=== PATIENT | male | born 1955 | race Caucasian/White ===

== ENCOUNTER 2018-02-12 07:26 | Inpatient (IN) | payer BC ==
--- NOTE | 2018-02-12 07:32 | ER Report ---
History and Physical Time Seen By MD: 07:32 HPI/ROS CHIEF COMPLAINT: right chest pain, cough HISTORY OF PRESENT ILLNESS: This is a 62 year old male. He has had a cough for bout 6 weeks now. Had been seeing his primary care provider at home, recent chest x-ray showed atelectasis. Here on vacation. Flew into [place], now with worsening pain. Right sided pain, sharp, intermittent. Worsens with deep breaths , cough. Radiates to right back and to right neck. Coughing up phlegm. Having fevers intermittently as well. No pain with eating or drinking. No problems with abdominal pain, normal bowels, normal urination. No swelling in legs. Has just finished a course of Doxycycline and Prednisone prescribed last week. Had a course of Amoxicillin prior to this during the last 6 weeks. REVIEW OF SYSTEMS: Constitutional: As above. Eyes: No vision changes. ENT: No sore throat. No congestion. Cardiovascular: No palpitations. Respiratory: As above. Gastrointestinal: No nausea or vomiting. Genitourinary: As above. Musculoskeletal: No extremity pain. Skin: No rashes. Neurological: No weakness. No headache. Allergies: Coded Allergies: codeine (Verified Allergy, Unknown, 02/12/18) Home Meds Reported Medications Benzonatate 100 Mg Cap (TESSALON PERLE 100 MG CAP) 100 Mg Capsule, 100 MG PO TID , #15 CAP 02/12/18 Cyclobenzaprine Hcl (CYCLOBENZAPRINE HCL) 10 Mg Tablet, 10 MG PO TID, #9 TAB 02/12/18 Cetirizine Hcl (ZYRTEC) 10 Mg Capsule, 10 MG PO QDAY, CAPSULE 02/12/18 Ranitidine Hcl (RANITIDINE HCL) 75 Mg Tablet, 75 MG PO BID 02/12/18 Aspirin (ASPIRIN) 81 Mg Tab.chew, 81 MG PO QDAY, TAB.CHEW 02/12/18 Omeprazole (OMEPRAZOLE) 20 Mg Tablet.dr, 20 MG PO BID, TAB 02/12/18 Metoprolol Succinate (METOPROLOL SUCCINATE) 25 Mg Tab.er.24h, 20 TAB PO 2-3XD, TAB 02/12/18 Montelukast Sodium (SINGULAIR) 10 Mg Tablet, 1 TAB PO QDAY, TAB 02/12/18 Past Medical/Surgical History Atrial fibrillation, history of tendon rupture on Levaquin (left achilles). Reviewed Nurses Notes: Yes Constitutional Vital Sign - Last 24 Hours 02/12/18 02/12/18 02/12/18 02/12/18 07:30 07:30 08:00 08:26 Temp 97.5 Pulse 102 92 Resp 18 28 B/P (MAP) 138/97 (111) 138/97 108/78 (88) Pulse Ox 90 90 O2 Delivery Room Air 02/12/18 02/12/18 02/12/18 02/12/18 08:30 08:56 09:00 10:00 Pulse 91 Resp 27 B/P (MAP) 130/94 (106) 127/91 (103) 127/90 (102) Pulse Ox 91 02/12/18 02/12/18 02/12/18 10:05 10:30 10:35 Pulse 92 89 Resp 36 16 B/P (MAP) 117/82 (94) Pulse Ox 89 94 Physical Exam General Appearance: The patient is alert. No acute distress. Eyes: Pupils are equal, round. No pallor, injection or icterus. ENT: Mucous membranes are moist. Normal oral mucosa. Posterior oropharynx is normal. Neck: Supple and non tender. No lymphadenopathy. Respiratory: Any deep breaths cause significant pain. Cough with greenish sputum. Lungs diminished in right base with coarse rales, the rest of the lungs are clear. Cardiovascular: Tachycardia, with a regular rhythm. No murmurs, gallops or rubs. No edema. Gastrointestinal: Abdomen is soft and non tender. Nondistended. Normal active bowel sounds. No costovertebral angle tenderness with percussion. Neurological: Alert and oriented x3. Skin: Warm and dry. Musculoskeletal: No pain in extremities or over spine,back area with palpation DIFFERENTIAL DIAGNOSIS: After history and physical exam, differential diagnosis was considered for chest pain including but not limited to myocardial ischemia, pericarditis pulmonary embolus, chest wall pain, pleural inflammation and pulmonary infectious causes. Medical Decision Making Data Points Result Diagram: 02/12/18 0730 02/12/18 0730 Laboratory Hematology Test 02/12/18 00:00 02/12/18 07:30 02/12/18 08:22 Red Blood Count 5.14 M/uL (4.00-5.60) Mean Corpuscular Volume 92.1 fL (80.0-96.0) Mean Corpuscular Hemoglobin 31.5 pg (26.0-33.0) Mean Corpuscular Hemoglobin Concent 34.2 g/dL (32.0-36.0) Red Cell Distribution Width 13.9 % (11.5-14.5) Mean Platelet Volume 9.2 fL (7.2-11.1) Neutrophils (%) (Auto) 81.0 % (39.4-72.5) Lymphocytes (%) (Auto) 7.3 % (17.6-49.6) Monocytes (%) (Auto) 8.9 % (4.1-12.4) Eosinophils (%) (Auto) 2.4 % (0.4-6.7) Basophils (%) (Auto) 0.4 % (0.3-1.4) Nucleated RBC Relative Count (auto) 0.7 /100WBC Neutrophils # (Auto) 13.8 K/uL (2.0-7.4) Lymphocytes # (Auto) 1.2 K/uL (1.3-3.6) Monocytes # (Auto) 1.5 K/uL (0.3-1.0) Eosinophils # (Auto) 0.4 K/uL (0.0-0.5) Basophils # (Auto) 0.1 K/uL (0.0-0.1) Nucleated RBC Absolute Count (auto) 0.12 K/uL D-Dimer Quantitative (PE/DVT) 1.26 ug/ml (0-0.50) Sodium Level 142 mmol/L (137-145) Potassium Level 3.8 mmol/L (3.5-5.0) Chloride Level 101 mmol/L (98-107) Carbon Dioxide Level 28 mmol/L (22-30) Blood Urea Nitrogen 17 mg/dl (9-21) Creatinine 1.50 mg/dl (0.66-1.25) Glomerular Filtration Rate Calc 47.6 Random Glucose 128 mg/dl (75-110) Calcium Level 9.4 mg/dl (8.4-10.2) Total Bilirubin 1.7 mg/dl (0.2-1.3) Aspartate Amino Transf (AST/SGOT) 39 U/L (0-35) Alanine Aminotransferase (ALT/SGPT) 47 U/L (0-56) Alkaline Phosphatase 62 U/L (0-126) Troponin I < 0.012 ng/ml C-Reactive Protein 37.6 mg/dl (<1.0) Total Protein 7.4 g/dl (6.3-8.2) Albumin 3.9 g/dl (3.5-5.0) Lactate 1.1 mmol/L (0.7-2.1) Chemistry Test 02/12/18 00:00 02/12/18 07:30 02/12/18 08:22 White Blood Count 17.1 k/uL (4.5-11.0) Red Blood Count 5.14 M/uL (4.00-5.60) Hemoglobin 16.2 g/dL (14.0-18.0) Hematocrit 47.3 % (42.0-52.0) Mean Corpuscular Volume 92.1 fL (80.0-96.0) Mean Corpuscular Hemoglobin 31.5 pg (26.0-33.0) Mean Corpuscular Hemoglobin Concent 34.2 g/dL (32.0-36.0) Red Cell Distribution Width 13.9 % (11.5-14.5) Platelet Count 210 K/uL (150-450) Mean Platelet Volume 9.2 fL (7.2-11.1) Neutrophils (%) (Auto) 81.0 % (39.4-72.5) Lymphocytes (%) (Auto) 7.3 % (17.6-49.6) Monocytes (%) (Auto) 8.9 % (4.1-12.4) Eosinophils (%) (Auto) 2.4 % (0.4-6.7) Basophils (%) (Auto) 0.4 % (0.3-1.4) Nucleated RBC Relative Count (auto) 0.7 /100WBC Neutrophils # (Auto) 13.8 K/uL (2.0-7.4) Lymphocytes # (Auto) 1.2 K/uL (1.3-3.6) Monocytes # (Auto) 1.5 K/uL (0.3-1.0) Eosinophils # (Auto) 0.4 K/uL (0.0-0.5) Basophils # (Auto) 0.1 K/uL (0.0-0.1) Nucleated RBC Absolute Count (auto) 0.12 K/uL D-Dimer Quantitative (PE/DVT) 1.26 ug/ml (0-0.50) Glomerular Filtration Rate Calc 47.6 Calcium Level 9.4 mg/dl (8.4-10.2) Total Bilirubin 1.7 mg/dl (0.2-1.3) Aspartate Amino Transf (AST/SGOT) 39 U/L (0-35) Alanine Aminotransferase (ALT/SGPT) 47 U/L (0-56) Alkaline Phosphatase 62 U/L (0-126) Troponin I < 0.012 ng/ml C-Reactive Protein 37.6 mg/dl (<1.0) Total Protein 7.4 g/dl (6.3-8.2) Albumin 3.9 g/dl (3.5-5.0) Lactate 1.1 mmol/L (0.7-2.1) Coagulation Test 02/12/18 07:30 D-Dimer Quantitative (PE/DVT) 1.26 ug/ml Urinalysis Test 02/12/18 00:00 Microbiology Microbiology Date/Time Source Procedure Growth Status 02/12/18 08:22 Blood Blood Culture - Preliminary NO GROWTH SO FAR, SET LATE. REINCUBATED Resulted 02/12/18 08:15 Blood Blood Culture - Preliminary NO GROWTH SO FAR, SET LATE. REINCUBATED Resulted EKG/Imaging EKG Interpretation 12 lead EKG: Rhythm: normal sinus rhythm, rate 100 [place]: normal QRS: normal ST segments: Nonspecific, no ST elevation or depression noted Imaging CHEST PA AND LAT Indication: Cough, right chest pain Comparison: None Findings: Lungs: There is a smooth bordered castro shaped opacity right upper lobe, and right midlung zone. The right hemidiaphragm is elevated. Right-sided pleural fluid appears at the apex. The left lung is well-expanded and clear. Mediastinum/pulmonary vasculature: Heart size and pulmonary vasculature are normal. Bones/soft tissues: Normal. IMPRESSION: 1. Right upper lobe smooth bordered opacity with possible pleural fluid. Differential diagnosis includes mass, or consolidation or loculated fluid in the major fissure. Recommend CT chest with IV contrast for further evaluation. 2. Clear left lung. Report Dictated By: Wang Porter at 02/12/2018 8:54 AM CTA CHEST WW/O CNTR (PULM ANG) HISTORY: chest pain, abnormal chest x-ray ADDITIONAL HISTORY: None. TECHNIQUE: CTA chest with intravenous contrast attention to pulmonary arteries. Sagittal, coronal and slab 3D MIP coronal reconstructed images were also created for further evaluation and interpretation. One of the following dose optimization techniques was utilized in the performance of this exam: Automated exposure control; adjustment of the mA and/ or kV according to the patient's size; or use of an iterative reconstruction technique. Specific details can be referenced in the facility's radiology CT exam operational policy. CONTRAST: 75 mL Isovue-370 IV COMPARISON: Chest x-ray 2017 FINDINGS: Heart/vessels: Pulmonary arterial tree well opacified without evidence of pulmonary embolism. Mediastinum: Negative. Lymph nodes: Several borderline to mildly enlarged right hilar lymph nodes, 1.0 x 1.3 cm (4/110) and 1.2 x 1.1 cm (4/119). Mildly enlarged subcarinal lymph node 1.3 x 2.8 cm (4/132). Lungs/pleura: Moderate asymmetric elevation right hemidiaphragm. On the left, elongate calcified pleural thickening anterior upper lobe with subjacent subsegmental chronic atelectasis or scar. Several calcified left lower lobe pulmonary nodules consistent with benign granulomas. Mild basilar subsegmental atelectasis. On the right, subtotal middle lobe collapse without gross central airway obstruction. Atelectasis and/or infiltrate basilar segments lower lobe. Mild compressive atelectasis posterior upper lobe. Moderate volume pleural fluid with multifocal loculation. Several calcified pulmonary nodules consistent with benign granulomas. Visualized upper abdomen: Surgical clips along the falciform ligament, otherwise grossly unremarkable. Bones/soft tissues: Mild disc degenerative changes thoracic spine. IMPRESSION: 1. Technically adequate exam without evidence of pulmonary embolism. 2. Moderate volume nonspecific right pleural fluid but with multifocal loculation. 3. Right basilar atelectasis and/or nonspecific pulmonary infiltrate. 4. Mild mediastinal and right hilar adenopathy. Report Dictated By: Troy Barrera MD at 02/12/2018 10:09 AM ED Course/Re-evaluation Clinical Indication for ER IV: Hydration, IV Access ED Course Initial evaluation as noted above. IV started, cultures and labs obtained. Chest x-ray shows changes that could represent pneumonia, effusion with possible loculation, and cannot rule out mass. White count elevated with shift. D-dimer elevated. EKG and Troponin are negative. Lactate 1.1 and elevated CRP. Creatinine is a little elevated, and no history of kidney problems in the past. CTA done and shows consolidation and loculated fluid. Discussed the case with Dr. Rai, and recommended admission to the hospital. After our conversation, gave Primaxin 500mg IV after obtaining urine and sputum cultures. Primaxin chosen because of the recent antibiotic use. Dr. Rai will obtain surgical consultation. Discussed all of this with the patient and his and answered questions for them. Decision to Disposition Date: Feb 12, 2018 Decision to Disposition Time: 11:08 Depart Departure Latest Vital Signs Vital Signs Date Time Temp Pulse Resp B/P (MAP) Pulse Ox O2 Delivery O2 Flow Rate FiO2 02/12/18 10:35 89 16 94 02/12/18 10:30 117/82 (94) 02/12/18 07:30 97.5 Room Air Impression: Primary Impression: Community acquired bacterial pneumonia Condition: Improved Disposition: Admitted from ER DAVIS STERN MD Feb 12, 2018 07:32
[2018-02-12] MEDS ORDERED: ONDANSETRON 4 MG/2 ML VIAL IVP ONE (07:45)
[2018-02-12] MEDS ORDERED: HYDROmorphone* 1 MG/ML 1 MG/ML ML IVP ONE ×2 (07:45→10:00)
[2018-02-12] MEDS ORDERED: NS(*) 0.9% 1000 ML BAG 1,000 ML IV ONE (07:45)
--- NOTE | 2018-02-12 07:50 | EKG ---
FACILITY: [facility] [place] PATIENT NAME: JUANPABLO CARRASCO : [id number] MR: [id number] V: [id number] EXAM DATE: ORDERING PHYSICIAN: DAVIS STERN TECHNOLOGIST: Test Reason : Blood Pressure : / mmHG Vent. Rate : 100 BPM Atrial Rate : 100 BPM P-R Int : 122 ms QRS Dur : 080 ms QT Int : 330 ms P-R-T Axes : 051 020 009 degrees QTc Int : 425 ms Normal sinus rhythm Possible Left atrial enlargement Borderline ECG No previous ECGs available Confirmed by RIMA COELHO ([id number]) on 02/12/2018 12:27:24 PM Referred By: Confirmed By:RIMA COELHO
[2018-02-12 07:57] LABS: PLATELET COUNT, AUTOMATED 210 K/uL (150-450)
[2018-02-12] MEDS ORDERED: MONT10TA PO (08:23)
[2018-02-12] MEDS ORDERED: METO25TA23 PO (08:23)
--- NOTE | 2018-02-12 08:59 | RADIOLOGY IMAGING REPORT ---
[facility] PATIENT NAME: Wilian Matthew : 1955 MR: [id number] V: [id number] EXAM DATE: ORDERING PHYSICIAN: DAVIS STERN TECHNOLOGIST: Location: [facility] Patient: Wilian Matthew : 1955 Visit/Account:[id number] Date of Sevice: 02/12/2018 CHEST PA AND LAT Indication: Cough, right chest pain Comparison: None Findings: Lungs: There is a smooth bordered castro shaped opacity right upper lobe, and right midlung zone. The right hemidiaphragm is elevated. Right-sided pleural fluid appears at the apex. The left lung is we ll-expanded and clear. Mediastinum/pulmonary vasculature: Heart size and pulmonary vasculature are normal. Bones/soft tissues: Normal. IMPRESSION: 1. Right upper lobe smooth bordered opacity with possible pleural fluid. Differential diagnosis inc ludes mass, or consolidation or loculated fluid in the major fissure. Recommend CT chest with IV con trast for further evaluation. 2. Clear left lung. Report Dictated By: Wang Porter at 02/12/2018 8:54 AM Report E-Signed By: Wang Porter at 02/12/2018 8:56 AM YULISSAN:MAGALI
[2018-02-12] MEDS ORDERED: CETI10CA8 PO (09:11)
[2018-02-12] MEDS ORDERED: CYCL10TA29 PO (09:11)
[2018-02-12] MEDS ORDERED: ASPI81TA94 PO (09:11)
[2018-02-12] MEDS ORDERED: BENZ100C4 PO (09:11)
[2018-02-12] MEDS ORDERED: RANI75TA5 PO (09:11)
[2018-02-12] MEDS ORDERED: OMEP-137 PO (09:11)
[2018-02-12] MEDS ORDERED: IOPAMIDOL 76% 100 ML INFUS BTL 100 ML ONE (09:30)
[2018-02-12] MEDS ORDERED: NS 0.9% 25 ML BAG 50 ML ONE (09:30)
--- NOTE | 2018-02-12 10:30 | RADIOLOGY IMAGING REPORT ---
FACILITY: [facility] [place] PATIENT NAME: Wilian Matthew : 1955 MR: [id number] V: [id number] EXAM DATE: ORDERING PHYSICIAN: DAVIS STERN TECHNOLOGIST: Location: [facility] [place] Patient: Wilian Matthew : 1955 Visit/Account:[id number] Date of Sevice: 02/12/2018 CTA CHEST WW/O CNTR (PULM ANG) HISTORY: chest pain, abnormal chest x-ray ADDITIONAL HISTORY: None. TECHNIQUE: CTA chest with intravenous contrast attention to pulmonary arteries. Sagittal, coronal a nd slab 3D MIP coronal reconstructed images were also created for further evaluation and interpretati on. One of the following dose optimization techniques was utilized in the performance of this exam: Autom ated exposure control; adjustment of the mA and/or kV according to the patient's size; or use of an i terative reconstruction technique. Specific details can be referenced in the facility's radiology C T exam operational policy. CONTRAST: 75 mL Isovue-370 IV COMPARISON: Chest x-ray 2017 FINDINGS: Heart/vessels: Pulmonary arterial tree well opacified without evidence of pulmonary embolism. Mediastinum: Negative. Lymph nodes: Several borderline to mildly enlarged right hilar lymph nodes, 1.0 x 1.3 cm (4/110) and 1.2 x 1.1 cm (4/119). Mildly enlarged subcarinal lymph node 1.3 x 2.8 cm (4/132). Lungs/pleura: Moderate asymmetric elevation right hemidiaphragm. On the left, elongate calcified ple ural thickening anterior upper lobe with subjacent subsegmental chronic atelectasis or scar. Several calcified left lower lobe pulmonary nodules consistent with benign granulomas. Mild basilar subsegmen jus atelectasis. On the right, subtotal middle lobe collapse without gross central airway obstruction . Atelectasis and/or infiltrate basilar segments lower lobe. Mild compressive atelectasis posterior u pper lobe. Moderate volume pleural fluid with multifocal loculation. Several calcified pulmonary nodu les consistent with benign granulomas. Visualized upper abdomen: Surgical clips along the falciform ligament, otherwise grossly unremarkabl e. Bones/soft tissues: Mild disc degenerative changes thoracic spine. IMPRESSION: 1. Technically adequate exam without evidence of pulmonary embolism. 2. Moderate volume nonspecific right pleural fluid but with multifocal loculation. 3. Right basilar atelectasis and/or nonspecific pulmonary infiltrate. 4. Mild mediastinal and right hilar adenopathy. Report Dictated By: Troy Barrera MD at 02/12/2018 10:09 AM Report E-Signed By: Troy Barrera MD at 02/12/2018 10:27 AM WSN:[id number]
[2018-02-12] MEDS ORDERED: IMIPENEM/CILASTA(*) 500MG VIAL 500 MG in NS(*) 0.9% 100 ML BAG 100 ML IVPB ONE (11:25)
[2018-02-12] MEDS ORDERED: PIPERACILLIN/TAZO* 4.5 GM VIAL 4.5 GM in NS(*) 0.9% 100 ML ADDVANT BAG 100 ML IVPB ONE (11:25)
[2018-02-12] MEDS ORDERED: INFLUENZA VIRUS VAC 0.5 ML SYR IM ONLY ONE (12:30)
[2018-02-12] MEDS ORDERED: ALBUTEROL 2.5 MG/3 ML NEB NEB PRN (12:30)
[2018-02-12] MEDS ORDERED: ACETAMINOPHEN 500 MG TAB PO PRN (12:30)
[2018-02-12 12:34] VITALS: BP 149/99
--- NOTE | 2018-02-12 13:02 | History & Physical ---
History of Present Illness Chief Complaint Cough and chest pain History of Present Illness This patient presented to the emergency room complaining of cough and chest pain. He reports right sided chest pain that occurs with coughing. He was diagnosed with a sinus infection about 10 days ago. He was placed on treatment with amoxicillin and doxycycline, but hasn't improved. He developed the cough 3 days ago and was seen in another emergency department and released. Today his chest pain became so severe that he was unable to continue on in the care. History Problems: (1) Essential hypertension Home Meds Reported Medications Benzonatate 100 Mg Cap (TESSALON PERLE 100 MG CAP) 100 Mg Capsule, 100 MG PO TID , #15 CAP 02/12/18 Cyclobenzaprine Hcl (CYCLOBENZAPRINE HCL) 10 Mg Tablet, 10 MG PO TID, #9 TAB 02/12/18 Cetirizine Hcl (ZYRTEC) 10 Mg Capsule, 10 MG PO QDAY, CAPSULE 02/12/18 Ranitidine Hcl (RANITIDINE HCL) 75 Mg Tablet, 75 MG PO BID 02/12/18 Aspirin (ASPIRIN) 81 Mg Tab.chew, 81 MG PO QDAY, TAB.CHEW 02/12/18 Omeprazole (OMEPRAZOLE) 20 Mg Tablet.dr, 20 MG PO BID, TAB 02/12/18 Metoprolol Succinate (METOPROLOL SUCCINATE) 25 Mg Tab.er.24h, 20 TAB PO 2-3XD, TAB 02/12/18 Montelukast Sodium (SINGULAIR) 10 Mg Tablet, 1 TAB PO QDAY, TAB 02/12/18 Allergies: Coded Allergies: codeine (Verified Allergy, Unknown, 02/12/18) Review of Systems All Systems Reviewed/Normal: Yes Cardiovascular: Chest Pain Respiratory: Cough Exam Vital Signs Vital Signs Date Time Temp Pulse Resp B/P (MAP) Pulse Ox O2 Delivery O2 Flow Rate FiO2 02/12/18 12:37 95 Nasal Cannula 3.0 02/12/18 12:34 97.7 84 25 149/99 (116) Neuro: No Gross deficits Eyes: PERRLA Cardiovascular: Regular Rate and Rhythm Respiratory: Other (Diminshed breath sounds at right base.) GI: Abd Soft and Non-Tender Extremities: No Edema Integumentary: No Cyanosis Medical Decision Making Data Points Result Diagram: 02/12/18 0730 02/12/18 0730 Item Value Date Time Lactate 1.1 mmol/L 02/12/18 0822 C-Reactive Protein 37.6 mg/dl H 02/12/18 0730 EKG / Imaging Imaging Chest x-ray and chest CT reviewed. Assessment and Plan Problems: (1) Community acquired bacterial pneumonia Status: Acute Assessment & Plan: He did present with cough and right sided chest pain. His CT scan has revealed an infiltrate and loculated effusion on the right. His WBC and CRP are both elevated. He was on amoxicillin and doxycycline prior to admission. Therefore, we have placed him on empiric treatment with Primaxin. Cultures are pending. (2) Pleural effusion on right Assessment & Plan: We will discuss options with surgery. (3) Essential hypertension Assessment & Plan: He is on chronic treatment with metoprolol. Venous Thromboembolism Antithrombotics Is Pt On Any Antithrombotics?: No Exam Sepsis Risk: No Definite Risk RIMA COELHO DO Feb 12, 2018 13:02
[2018-02-12] MEDS: HYDROmorphone HCL 2 MG/ML SDV IVP PRN ×2 (13:28→19:13)
[2018-02-12] MEDS: NS(*) 0.9% 1000 ML BAG 1,000 ML IV PRN (13:32)
[2018-02-12] MEDS: GUAIFENESIN/DEXTROMETHORPHAN 5 ML PO PRN (13:37)
[2018-02-12] MEDS: PROMETHAZINE 25 MG/ML 1 ML AMP IVP PRN (14:37)
[2018-02-12 15:39] VITALS: BP 140/98
[2018-02-12] MEDS ORDERED: FENO43CA PO (15:50)
[2018-02-12] MEDS ORDERED: MULT-1335 PO (16:37)
[2018-02-12] MEDS ORDERED: ASCO-182 PO (16:37)
[2018-02-12] MEDS ORDERED: RANI-366 PO (16:53)
[2018-02-12] MEDS ORDERED: FENO145T36 PO (16:53)
[2018-02-12] MEDS ORDERED: METO50TA19 PO (16:53)
[2018-02-12] MEDS ORDERED: ONDANSETRON 4 MG/2 ML VIAL ONE (17:38)
[2018-02-12] MEDS ORDERED: ALTEPLASE RECOMB 100 MG/100 ML VIAL IV SCH (17:40)
[2018-02-12] MEDS: IMIPENEM/CILASTA(*) 500MG VIAL 500 MG in NS(*) 0.9% 100 ML BAG 100 ML IVPB SCH ×3 (17:43→23:16)
--- NOTE | 2018-02-12 18:16 | Procedure Note ---
Chest Tube Procedure Note Consent Signed: Yes Chest Tube Location: Right Lung Complications: None Anesthesia Used: 1% Lidocaine, Other (2% Lidocaine) Chest Tube Size Fr.: 24 Chest Tube Suction: Pleura-Vac Chest Tube Secured: 0 Silk Suture (x2) Post Procedure Xray Ordered: Yes Comment serous drainage SAMANTA MCCULLOUGH MD Feb 12, 2018 18:16
--- NOTE | 2018-02-12 18:26 | General Surgery Consultation ---
History of Present Illness Requesting Physician Dr. Rai Reason for Consult parapneumonic effusion vs. empyema Chief Complaint right sided chest pain, cough History of Present Illness 62 year old male from [place] who was traveling with his presented to [facility] with pneumonia. CT of his chest noted loculated pleural effusion located in the posterior and superior aspect of the thorax. He was complaining of right sided pleuritic pain. The pain was exacerbated by deep breathing. The pain did not radiate. About three weeks ago he aspirated a [employer] and developed issues with a pulmonary infection. He was started on doxy and augmentin. He decided to come on vacation even though he wasn't feeling well. He is on a baby asa and metoprolol. No prior h/o pneumonia. History Home Meds Reported Medications Ranitidine Hcl (ZANTAC) 150 Mg Tablet, 300 MG PO QHS, TAB 02/12/18 Fenofibrate Nanocrystallized (FENOFIBRATE) 145 Mg Tablet, 145 MG PO QDAY 02/12/18 Metoprolol Succinate (METOPROLOL SUCCINATE) 50 Mg Tab.er.24h, 25 MG PO BID 02/12/18 Multivitamin With Minerals (MULTIPLE VITAMIN) 1 Each Tablet, 1 EACH PO, TAB 02/12/18 Ascorbic Acid (VITAMIN C) 500 Mg Tablet, 500 MG PO, TAB 02/12/18 Benzonatate 100 Mg Cap (TESSALON PERLE 100 MG CAP) 100 Mg Capsule, 100 MG PO TID , #15 CAP 02/12/18 Cyclobenzaprine Hcl (CYCLOBENZAPRINE HCL) 10 Mg Tablet, 10 MG PO TID, #9 TAB 02/12/18 Cetirizine Hcl (ZYRTEC) 10 Mg Capsule, 10 MG PO QDAY, CAPSULE 02/12/18 Aspirin (ASPIRIN) 81 Mg Tab.chew, 81 MG PO QDAY, TAB.CHEW 02/12/18 Omeprazole (OMEPRAZOLE) 20 Mg Tablet.dr, 20 MG PO BID, TAB 02/12/18 Montelukast Sodium (SINGULAIR) 10 Mg Tablet, 1 TAB PO QDAY, TAB 02/12/18 Discontinued Reported Medications Fenofibrate,Micronized (FENOFIBRATE) 43 Mg Capsule, 43 MG PO QDAY, CAPSULE 02/12/18 Ranitidine Hcl (RANITIDINE HCL) 75 Mg Tablet, 75 MG PO BID 02/12/18 Metoprolol Succinate (METOPROLOL SUCCINATE) 25 Mg Tab.er.24h, 20 TAB PO 2-3XD, TAB 02/12/18 Allergies: Coded Allergies: codeine (Verified Allergy, Unknown, 02/12/18) Exam Vital Signs Vital Signs Date Time Temp Pulse Resp B/P (MAP) Pulse Ox O2 Delivery O2 Flow Rate FiO2 02/12/18 15:57 103 02/12/18 15:39 98.4 20 140/98 (112) 91 Nasal Cannula 4.0 General Appearance: Alert, Awake, No Acute Distress Eyes: PERRLA ENT: Moist Mucous Membranes Cardiovascular: Regular Rate and Rhythm Respiratory: No Respiratory Distress, Other (decreased bs on the right) GI: Abd Soft and Non-Tender Extremities: Soft and Non Tender Medical Decision Making Data Points Result Diagram: 02/12/18 0730 02/12/18 0730 EKG / Imaging Monitor Interpretation: Normal Sinus Rhythm Pre-Admit Course Medical Record Review: Yes Assessment and Plan Problems: (1) Pleural effusion *Optional Permanent Comment*: placed a 24fr chest tube will proceed with TPA x48 hours(10mg TID instill for 1hr with patient flat then drain) then repeat chest CT May need VATS if fails to resolve Continue abx per Dr. Rai for pneumonia Last Edited By: Samanta Cabrera MD on Feb 12, 2018 18:26 Time Spent: > 30 min Venous Thromboembolism Antithrombotics Is Pt On Any Antithrombotics?: No SAMANTA CABRERA MD Feb 12, 2018 18:26
[2018-02-12] MEDS ORDERED: fentaNYL CITR 100 MCG/2 ML AMP IVP ONE (18:30)
[2018-02-12] MEDS ORDERED: MIDAZOLAM 2 MG/2 ML VIAL IVP ONE (18:30)
[2018-02-12] MEDS: SODIUM CHLORIDE 0.9% IV SCH (18:45)
[2018-02-12] MEDS: ALTEPLASE IV SCH (18:45)
--- NOTE | 2018-02-12 19:23 | RADIOLOGY IMAGING REPORT ---
FACILITY: [facility] PATIENT NAME: Wilian Matthew : 1955 MR: [id number] V: [id number] EXAM DATE: ORDERING PHYSICIAN: RIMA COELHO TECHNOLOGIST: Location: [facility] [place] Patient: Wilian Matthew : 1955 Visit/Account:[id number] Date of Sevice: 02/12/2018 Examination: CHEST SINGLE AP Comparison: Earlier the same day. History: Chest tube insertion. Findings: A right chest tube is now present and extends along the right lower lung. Probable decrease d size of the likely loculated pleural effusion. No pneumothorax. Increased atelectasis. Cardiac and hilar contour is enlarged but unchanged. Right hemidiaphragm eleva tion as before. No acute osseous abnormality. IMPRESSION: 1. Right chest tube placement likely with decreased pleural fluid. 2. No pneumothorax. 3. Increased atelectasis. Report Dictated By: Casey Lindo MD at 02/12/2018 7:18 PM Report E-Signed By: Casey Lindo MD at 02/12/2018 7:20 PM WSN:[id number]
[2018-02-12 19:24] VITALS: BP 129/85
[2018-02-12 22:17] VITALS: BP 127/97
[2018-02-13] MEDS: ONDANSETRON 4 MG/2 ML VIAL IVP PRN ×5 (00:11→19:48)
[2018-02-13] MEDS: HYDROmorphone HCL 2 MG/ML SDV IVP PRN ×6 (00:11→22:15)
[2018-02-13] MEDS: NS(*) 0.9% 1000 ML BAG 1,000 ML IV PRN ×2 (01:21→13:47)
[2018-02-13] MEDS: ALTEPLASE IV SCH ×3 (02:36→18:03)
[2018-02-13] MEDS: SODIUM CHLORIDE 0.9% IV SCH ×3 (02:36→18:03)
[2018-02-13] MEDS: PROMETHAZINE 25 MG/ML 1 ML AMP IVP PRN ×2 (02:51→21:17)
[2018-02-13 03:53] VITALS: BP 141/108
--- NOTE | 2018-02-13 04:42 | RADIOLOGY IMAGING REPORT ---
FACILITY: [facility] PATIENT NAME: Wilian Matthew : 1955 MR: [id number] V: [id number] EXAM DATE: ORDERING PHYSICIAN: RIMA COELHO TECHNOLOGIST: Location: [facility] Patient: Wilian Matthew : 1955 Visit/Account:[id number] Date of Sevice: 02/13/2018 CHEST SINGLE AP 02/13/2018 03:55 hours. HISTORY: Effusion. Shortness of breath. Chest pain. COMPARISON: 02/12/2018. TECHNIQUE: Portable AP view of the chest. FINDINGS: Tubes/lines/hardware: There are external chest leads. There is a right chest tube. Pulmonary: The right pleural effusion has decreased in size. There is now gas in the right apical ple ural space/pneumothorax. There has been improvement in aeration of the right lung. There is mild left basilar atelectasis, stable to improved. There is mild elevation the right hemidiaphragm, unchanged. Cardiomediastinal: Cardiac and mediastinal silhouettes are within normal limits. Bones/soft tissues: No acute osseous abnormality. The visible abdomen is normal. There is subcutaneou s emphysema in the right lateral chest wall that has mildly increased. IMPRESSION: 1. Decrease in size of the right pleural effusion and improvement in aeration of the right lung. 2. Left basilar atelectasis is stable to mildly improved. 3. There is now gas in the pleural space at the right apex/small right apical pneumothorax. Right abdullahi st tube is present. These findings were discussed by phone with [place] TY on 02/13/2018 4:38 AM. Report Dictated By: Mandi Schultz at 02/13/2018 4:28 AM Report E-Signed By: Mandi Schultz at 02/13/2018 4:38 AM WSN:[id number]
[2018-02-13] MEDS: IMIPENEM/CILASTA(*) 500MG VIAL 500 MG in NS(*) 0.9% 100 ML BAG 100 ML IVPB SCH ×5 (05:15→20:17)
[2018-02-13 05:53] LABS: PLATELET COUNT, AUTOMATED 163 K/uL (150-450)
[2018-02-13 06:54] VITALS: BP 147/111
--- NOTE | 2018-02-13 08:46 | General Surgery Progress Note ---
Subjective Progress Notes Subjective vomiting increased O2 Physical Exam Vital Signs Date Time Temp Pulse Resp B/P (MAP) Pulse Ox O2 Delivery O2 Flow Rate FiO2 02/13/18 06:54 98.5 101 13 147/111 (123) 94 Oxy Mask 8.0 Intake and Output 02/14/18 07:00 Output Total 800 ml Balance -800 ml Output Urine Total 300 ml Emesis 500 ml # Emeses 2 General Appearance: Alert, Awake, No Acute Distress ENT: Moist Mucous Membranes Cardiovascular: Regular Rate and Rhythm Respiratory: No Respiratory Distress GI: Other (distended, non-tender) Extremities: Soft and Non Tender Result Diagram: 02/13/1851902/13/18519 Monitor Interpretation: Normal Sinus Rhythm Assessment and Plan Problems: (1) Pleural effusion *Optional Permanent Comment*: Last Edited By: Samanta Cabrera MD on Feb 13, 2018 08:42 Status: Acute Assessment & Plan: cxray today shows improved air spaces and reduction of effusions 825cc serosanguinous fluid out from CT yesterday continue on suction, small apical pneumothorax continue TPA protocol repeat chest CT tomorrow continue abx for pneumonia (2) Ileus Status: Acute Assessment & Plan: KUB ordered will place NGT if large gastric bubble. make NPO, continue IVFs ambulate monitor and replete electrolytes will order CT abd/pelvis with chest if fails to resolve by tomorrow to further evaluate Exam Sepsis Risk: Sepsis Risk SAMANTA CABRERA MD Feb 13, 2018 08:46
[2018-02-13] MEDS: DOCUSATE SODIUM 100 MG CAP PO SCH (09:00)
[2018-02-13] MEDS: POLYETHYLENE GLYCOL 17 GM PKT PO SCH (09:00)
--- NOTE | 2018-02-13 09:22 | Hospitalist Progress Note ---
Subjective Progress Notes Subjective He reports pain with chest tube. He has also had abdominal distension and nausea /vomiting. Physical Exam Vital Signs Date Time Temp Pulse Resp B/P (MAP) Pulse Ox O2 Delivery O2 Flow Rate FiO2 02/13/18 07:25 94 Oxy Mask 8.0 02/13/18 06:54 98.5 101 13 147/111 (123) Intake and Output 02/14/18 07:00 Intake Total 240 ml Output Total 800 ml Balance -560 ml Intake Oral 240 ml Output Urine Total 300 ml Emesis 500 ml # Emeses 2 General Appearance: Alert, Awake Cardiovascular: Regular Rate and Rhythm Respiratory: Other (decreased breath sounds at right base) Chest: Other (right chest tube in place with dressing intact) GI: Other (distended/somewhat taut/rare BS) Extremities: Warm, Perfused Result Diagram: 02/13/1851902/13/18519 Assessment and Plan Problems: (1) Community acquired bacterial pneumonia Status: Acute Assessment & Plan: This may have been a possible aspiration episode as well. He did present with cough and right sided chest pain. His CT scan has revealed an infiltrate and loculated effusion on the right. His WBC and CRP were both elevated. He was on amoxicillin and doxycycline prior to admission. Therefore , we have placed him on empiric treatment with IV Primaxin. Chest tube has been placed. Cultures are pending. (2) Pleural effusion on right Assessment & Plan: Loculated effusion secondary to pneumonia (possibly aspiration). Surgery has placed chest tube. Cultures pending. (3) Essential hypertension Assessment & Plan: He is on chronic treatment with metoprolol. Monitor. (4) Ileus Status: Acute Assessment & Plan: Surgery helping manage. NG will be placed. Keep NPO. Continue IV fluids. Watch closely. Exam Sepsis Risk: Sepsis Risk MAYKEL HOPKINS MD Feb 13, 2018 09:22
[2018-02-13 10:30] VITALS: BP 140/97
--- NOTE | 2018-02-13 11:33 | RADIOLOGY IMAGING REPORT ---
FACILITY: [facility] PATIENT NAME: Wilian Matthew : 1955 MR: [id number] V: [id number] EXAM DATE: ORDERING PHYSICIAN: SAMANTA MCCULLOUGH TECHNOLOGIST: Location: [facility] Patient: Wilian Matthew : 1955 Visit/Account:[id number] Date of Sevice: 02/13/2018 KUB SINGLE VIEW ABDOMEN Indication: Abdominal pain Comparison: None available Findings: Bowel gas seen throughout the abdomen in a nonobstructive pattern. There are no pathologic calcifications identified. Moderate amount of stool seen within the colon prominent within the a sending colon. Surgical clips within right upper quadrant related to prior cholecystectomy. Residual contrast seen within the urin alyssa bladder likely related to recent CT angiogram of the chest. IMPRESSION: 1. No evidence of bowel obstruction. 2. Moderate amount of stool within the region of the ascending colon. Report Dictated By: Wei Cloud MD at 02/13/2018 11:25 AM Report E-Signed By: Wei Cloud MD at 02/13/2018 11:29 AM WSN:[email or web address]
[2018-02-13 15:08] VITALS: BP 139/98
--- NOTE | 2018-02-13 15:11 | RADIOLOGY IMAGING REPORT ---
FACILITY: [facility] PATIENT NAME: Wilian Matthew : 1955 MR: [id number] V: [id number] EXAM DATE: ORDERING PHYSICIAN: SAMANTA MCCULLOUGH TECHNOLOGIST: Location: [facility] [place] Patient: Wilian Matthew : 1955 Visit/Account:[id number] Date of Sevice: 02/13/2018 CHEST SINGLE AP Indication: Right chest pain with chest tube. Comparison: Single view chest earlier on 02/13/2018 Findings: Heart size mildly enlarged with no overt failure. Interval placement of enteric feeding tube with ti p within the mid stomach. Interval placement of right-sided chest tube with the distal tip of the mi d right lung field. Significant decreased size of the right apical pneumothorax now measuring approx imately 1.2 cm Persistent patchy bibasilar atelectasis or early infiltrates. Subcutaneous emphysema right lower lat eral right lower chest wall again noted. IMPRESSION: 1. Interval placement of right-sided chest tube with slight decreased size of the right apical pneumo thorax as above. 2. Mild bibasilar atelectasis or early infiltrates. Report Dictated By: Wei Cloud MD at 02/13/2018 3:04 PM Report E-Signed By: Wei Cloud MD at 02/13/2018 3:07 PM WSN:[email or web address]
--- NOTE | 2018-02-13 15:25 | Medical Nutrition Therapy ---
Nutrition Anthropometrics Weight (Pounds): 180 Weight (Calculated Kilograms): 81.647 Jose Nutrition Score: Adequate Jose Nutrition Risk Score: 20 Dietary Referral Nutrition Risk Factors: Nutrition Risk Comment: Nutritional Diagnosis Nutritional Risk Acuity 1: Ileus Past Medical History: Afib, HTN Nutritional Acuity: 1-High Nutrition Diagnosis: Inadequate Food Intake Nutrition Etiology: Physiological Causes Nutrition Problem/Etiology/Sym: AEB diet order of NPO Energy Requirement: 2430 (30kcal/kg) Protein Requirement: 81 (1gm/kg) Fluid Requirement: 2430 (30ml/kg) Diet Type: NPO (Nothing by Mouth) Nutrition Intervention: Incr diet as tolerated Nutrition Monitoring & Eval Nutrition Goals: Eat 75-100% Meal RD Patient Assessment Time: [address] Assessment Type: RD Assessment Patient Nutrition Acuity: 1-High Follow Up Date: Feb 16, 2018 Nutritional Comment: 02/13 Pt. admitted with acute bacterial pneumonia with pleural effusion on rt. side. Pt was on regular diet and ate 100% but then developed an ileus and diet changed to NPO. Experiencing nausea. . Creatinine 1.5, glucose 128, alb 3.9. No edema. Abdomen round and hypoactive bowel. Will monitor. SHMUEL KEY Feb 13, 2018 15:25
[2018-02-13] MEDS: PHENOL SPRAY 120 ML BTL MT PRN ×2 (16:58→20:09)
[2018-02-13 19:50] VITALS: BP 138/97
[2018-02-13] MEDS ORDERED: BENZOCAINE/MENTHOL 1 EACH LOZG PO PRN (22:20)
[2018-02-13 22:37] VITALS: BP 133/97
[2018-02-14] VITALS (39 sets, daily range): BP systolic 79–219; BP diastolic 48–109
[2018-02-14] MEDS: IMIPENEM/CILASTA(*) 500MG VIAL 500 MG in NS(*) 0.9% 100 ML BAG 100 ML IVPB SCH ×4 (01:32→20:13)
[2018-02-14] MEDS: NS(*) 0.9% 1000 ML BAG 1,000 ML IV PRN (01:32)
[2018-02-14] MEDS: HYDROmorphone HCL 2 MG/ML SDV IVP PRN (01:32)
[2018-02-14] MEDS: PROMETHAZINE 25 MG/ML 1 ML AMP IVP PRN (02:17)
[2018-02-14] MEDS: ALTEPLASE IV SCH ×2 (02:26→10:00)
[2018-02-14] MEDS: SODIUM CHLORIDE 0.9% IV SCH ×2 (02:26→10:00)
[2018-02-14] MEDS: ONDANSETRON 4 MG/2 ML VIAL IVP PRN (03:55)
--- NOTE | 2018-02-14 05:44 | RADIOLOGY IMAGING REPORT ---
FACILITY: [facility] PATIENT NAME: Wilian Matthew : 1955 MR: [id number] V: [id number] EXAM DATE: ORDERING PHYSICIAN: SAMANTA MCCULLOUGH TECHNOLOGIST: Location: [facility] Patient: Wilian Matthew : 1955 Visit/Account:[id number] Date of Sevice: 02/14/2018 INDICATION: pleural effusion. DATE: 02/14/2018 5:37 AM. TECHNIQUE: CHEST SINGLE AP COMPARISON: Upright chest radiograph of February 13, 2018. FINDINGS: On today's semiupright view, extensive opacity at the right lung apex has increased. There is bandlike opacity at the right lung base. The right hemidiaphragm is chronically elevated respect t o the left. Subcutaneous emphysema on the right lateral chest wall has decreased. A right-sided chest tube remains in place. There is a small right-sided pneumothorax. IMPRESSION: Worsening opacity in the right upper lung with persistent right basilar atelectasis and small right-s ided pneumothorax. Report Dictated By: Eduard Gonsalez MD at 02/14/2018 5:37 AM Report E-Signed By: Eduard Gonsalez MD at 02/14/2018 5:40 AM WSN:[id number]
[2018-02-14] MEDS ORDERED: IOPAMIDOL 76% 100 ML INFUS BTL 100 ML ONE (05:46)
[2018-02-14 06:20] LABS: PLATELET COUNT, AUTOMATED 187 K/uL (150-450)
--- NOTE | 2018-02-14 07:47 | RADIOLOGY IMAGING REPORT ---
FACILITY: [facility] [place] PATIENT NAME: Wilian Matthew : 1955 MR: [id number] V: [id number] EXAM DATE: ORDERING PHYSICIAN: SAMANTA MCCULLOUGH TECHNOLOGIST: Location: [facility] Patient: Wilian Matthew : 1955 Visit/Account:[id number] Date of Sevice: 02/14/2018 COMPUTED TOMOGRAPHY OF THE CHEST without contrast and ABDOMEN, AND PELVIS with CONTRAST DATE OF EXAM: 02/14/2018. INDICATION: . ileus vs. bowel obstruction and eval of emphysema. . TECHNIQUE: Contiguous axial CT images were obtained through the chest, abdomen, and pelvis. 75 cc Iso rosita-370 administered during the abdomen and pelvis portion of the examination .. Coronal and sagitta l reformatted images were submitted. COMPARISON: Chest radiograph and abdomen radiographs of February 13, 2018.. FINDINGS: Thyroid: Unremarkable. Thoracic inlet: No thoracic inlet adenopathy. Heart and great vessels: Heart size is normal. Mediastinum and michelle: There are hilar calcifications most notable on the right. A rounded pleural fl uid loculation abuts the right hilum. Lungs and pleura: There continues to be a small to moderate right pleural effusion with a large bore chest tube in place in the right mid to upper chest posteriorly. There are loculations undrained by the chest tube. These are best demonstrated on the CT abdomen and pelvis portion of the examination o r contrast is present There is a small pneumothorax on the right. Small volume of subcutaneous emphys heather on the right lateral chest wall extending to the right flank. There is scarring at the left apex. There are a few small calcified granulomas in the left lung. Breast and axilla: Breast tissue is unremarkable. Liver and hepatic vasculature: Liver parenchymal density is diffusely decreased. There is a small cy st in the right lobe. Gallbladder and bile ducts: High density material in the gallbladder is likely contrast. Spleen: Calcification anteriorly within the splenic parenchyma. The spleen is blurred by motion. Pancreas: Normal appearing pancreas. Adrenals: Normal adrenals. Kidneys, ureters and bladder: Mild bilateral perinephric stranding is nonspecific. Retroperitoneum and aorta: Normal caliber aorta. GI tract, mesentery and peritoneum: No bowel obstruction. The small bowel is decompressed, and there is a normal volume of gas and stool in the colon. The esophagogastric tube terminates in the stomach. Bones and soft tissues: No acute osseous abnormality. IMPRESSION: 1. The small bowel is nondistended, and there is a normal volume of gas and stool in the colon. No ob struction. 2. The loculated right pleural effusion is incompletely drained by the large bore chest tube. There i s also a small right-sided pneumothorax. 3. Relatively small volume of subcutaneous emphysema along the right lateral chest wall and right fla nk. 4. Mild bilateral perinephric stranding is nonspecific. Correlate with urinalysis. 5. Multiple chronic findings as above. One of the following dose optimization techniques was utilized in the performance of this exam: Autom ated exposure control; adjustment of the mA and/or kV according to the patient's size; or use of an i terative reconstruction technique. Specific details can be referenced in the facility's radiology C T exam operational policy. Report Dictated By: Eduard Gonsalez MD at 02/14/2018 7:26 AM Report E-Signed By: Eduard Gonsalez MD at 02/14/2018 7:42 AM WSN:[id number]
--- NOTE | 2018-02-14 07:47 | RADIOLOGY IMAGING REPORT ---
FACILITY: [facility] PATIENT NAME: Wilian Matthew : 1955 MR: [id number] V: [id number] EXAM DATE: ORDERING PHYSICIAN: SAMANTA MCCULLOUGH TECHNOLOGIST: Location: [facility] [place] Patient: Wilian Matthew : 1955 Visit/Account:[id number] Date of Sevice: 02/14/2018 COMPUTED TOMOGRAPHY OF THE CHEST without contrast and ABDOMEN, AND PELVIS with CONTRAST DATE OF EXAM: 02/14/2018. INDICATION: . ileus vs. bowel obstruction and eval of emphysema. . TECHNIQUE: Contiguous axial CT images were obtained through the chest, abdomen, and pelvis. 75 cc Iso rosita-370 administered during the abdomen and pelvis portion of the examination .. Coronal and sagitta l reformatted images were submitted. COMPARISON: Chest radiograph and abdomen radiographs of February 13, 2018.. FINDINGS: Thyroid: Unremarkable. Thoracic inlet: No thoracic inlet adenopathy. Heart and great vessels: Heart size is normal. Mediastinum and michelle: There are hilar calcifications most notable on the right. A rounded pleural fl uid loculation abuts the right hilum. Lungs and pleura: There continues to be a small to moderate right pleural effusion with a large bore chest tube in place in the right mid to upper chest posteriorly. There are loculations undrained by the chest tube. These are best demonstrated on the CT abdomen and pelvis portion of the examination o r contrast is present There is a small pneumothorax on the right. Small volume of subcutaneous emphys heather on the right lateral chest wall extending to the right flank. There is scarring at the left apex. There are a few small calcified granulomas in the left lung. Breast and axilla: Breast tissue is unremarkable. Liver and hepatic vasculature: Liver parenchymal density is diffusely decreased. There is a small cy st in the right lobe. Gallbladder and bile ducts: High density material in the gallbladder is likely contrast. Spleen: Calcification anteriorly within the splenic parenchyma. The spleen is blurred by motion. Pancreas: Normal appearing pancreas. Adrenals: Normal adrenals. Kidneys, ureters and bladder: Mild bilateral perinephric stranding is nonspecific. Retroperitoneum and aorta: Normal caliber aorta. GI tract, mesentery and peritoneum: No bowel obstruction. The small bowel is decompressed, and there is a normal volume of gas and stool in the colon. The esophagogastric tube terminates in the stomach. Bones and soft tissues: No acute osseous abnormality. IMPRESSION: 1. The small bowel is nondistended, and there is a normal volume of gas and stool in the colon. No ob struction. 2. The loculated right pleural effusion is incompletely drained by the large bore chest tube. There i s also a small right-sided pneumothorax. 3. Relatively small volume of subcutaneous emphysema along the right lateral chest wall and right fla nk. 4. Mild bilateral perinephric stranding is nonspecific. Correlate with urinalysis. 5. Multiple chronic findings as above. One of the following dose optimization techniques was utilized in the performance of this exam: Autom ated exposure control; adjustment of the mA and/or kV according to the patient's size; or use of an i terative reconstruction technique. Specific details can be referenced in the facility's radiology C T exam operational policy. Report Dictated By: Eduard Gonsalez MD at 02/14/2018 7:26 AM Report E-Signed By: Eduard Gonsalez MD at 02/14/2018 7:42 AM WSN:[id number]
--- NOTE | 2018-02-14 08:53 | General Surgery Progress Note ---
Subjective Progress Notes Subjective passing flatus CT chest shows increased size of pleural effusion appears to be loculated. Physical Exam Vital Signs Date Time Temp Pulse Resp B/P (MAP) Pulse Ox O2 Delivery O2 Flow Rate FiO2 02/14/18 07:38 97.7 113 24 146/93 (110) 93 Nasal Cannula 5.0 General Appearance: Alert, No Acute Distress ENT: Moist Mucous Membranes Cardiovascular: Other (sinus tachycardia) Respiratory: Other (decrease bs on right) GI: Soft and Non-Tender Integumentary: Skin Intact without Lesion / Mass Psych: Alert & Oriented X3 Result Diagram: 02/14/18 0546 02/14/18 0546 Assessment and Plan Problems: (1) Pleural effusion *Optional Permanent Comment*: Last Edited By: Samanta Cabrera MD on Feb 13, 2018 08:42 Status: Acute Assessment & Plan: 02/13 cxray today shows improved air spaces and reduction of effusions 825cc serosanguinous fluid out from CT yesterday continue on suction, small apical pneumothorax continue TPA protocol repeat chest CT tomorrow continue abx for pneumonia 02/14 pleural collection appears to be thick and increased in size compared to prior Chest tube may have been pulled back Plan for VATS today, consent obtained. type and screen sent. (2) Ileus Status: Acute Assessment & Plan: 02/[address] NGT if large gastric bubble. make NPO, continue IVFs 02/14 ileus has resolved and NGT output decreased CT shows decompressed bowels passing flatus will remove NGT after VATS Time Spent: > 30 min Exam Sepsis Risk: Sepsis Risk SAMANTA CABRERA MD Feb 14, 2018 08:53
[2018-02-14] MEDS ORDERED: NS(*) 0.9% 500 ML BAG 500 ML ONE (09:07)
[2018-02-14] MEDS ORDERED: FAMOTIDINE 20 MG/50 ML PREMIX IVPB ONE (09:10)
[2018-02-14] MEDS ORDERED: NORMOSOL R SOLN(*) 1000 ML BAG 1,000 ML IV ONE (09:13)
[2018-02-14] MEDS ORDERED: BUPIV/EPI 0.25% 1:200,000 50ML INFIL ONE (09:26)
[2018-02-14] MEDS ORDERED: LIDOCAINE MPF 1% 5 ML VIAL ONE (09:43)
[2018-02-14] MEDS ORDERED: PROPOFOL EMUL(*) 10MG/ML 20 ML 20 ML ONE (09:43)
[2018-02-14] MEDS ORDERED: DEXAMETHASONE SOD PHOS 10MG/ML ONE (09:43)
[2018-02-14] MEDS ORDERED: fentaNYL CITR 250 MCG/5 ML AMP ONE (09:43)
[2018-02-14] MEDS ORDERED: ONDANSETRON 4 MG/2 ML VIAL ONE (09:43)
[2018-02-14] MEDS ORDERED: PROPOFOL EMUL(*) 10MG/ML 20 ML 60 ML ONE ×2 (09:44→12:04)
[2018-02-14] MEDS ORDERED: ROCURONIUM BROM 10 MG/ML 10 ML ONE ×2 (09:50→12:18)
[2018-02-14] MEDS ORDERED: KETAMINE HCL 200 MG/20 ML MDV ONE (09:50)
--- NOTE | 2018-02-14 10:00 | Hospitalist Progress Note ---
Subjective Progress Notes Subjective The patient continues to have pain due to chest tube on the right side. He denies shortness of breath. Physical Exam Vital Signs Date Time Temp Pulse Resp B/P (MAP) Pulse Ox O2 Delivery O2 Flow Rate FiO2 02/14/18 07:38 97.7 113 24 146/93 (110) 93 Nasal Cannula 5.0 General Appearance: Alert, Awake, Other (Some distress to to intermittent chest pain.) Neuro: No Gross deficits Eyes: PERRLA Cardiovascular: Other (Tachy, regular.) Respiratory: Other (Coarse breath sounds bilaterally anteriorly.) Chest: Other (Chest tube in place R midaxillary line. Fluctuance of the skin over the pectoralis muscles without obvious crepitus on palpation. No obvious redness or increased warmth to the touch.) GI: Soft and Non-Tender Extremities: Warm, Perfused, Other (No edema.) Integumentary: Other (Chest tube in place right chest wall.) Psych: Appropriate Mood & Affect Result Diagram: 02/14/1854502/14/18545 Item Value Date Time Neutrophils (%) (Auto) 78.8 % H 02/14/18 0546 Lymphocytes (%) (Auto) 7.9 % L 02/14/18 0546 Monocytes (%) (Auto) 12.5 % H 02/14/18 0546 Eosinophils (%) (Auto) 0.5 % 02/14/18 05 Basophils (%) (Auto) 0.3 % 02/14/18 05 Nucleated RBC Relative Count (auto) 0.0 /100WBC 02/14/18 05 Neutrophils # (Auto) 10.1 K/uL H 02/14/18 0546 Lymphocytes # (Auto) 1.0 K/uL L 02/14/18 0546 Monocytes # (Auto) 1.6 K/uL H 02/14/18 0546 Eosinophils # (Auto) 0.1 K/uL 02/14/18 0546 Basophils # (Auto) 0.0 K/uL 02/14/18 05 Nucleated RBC Absolute Count (auto) 0.00 K/uL 02/14/18 0546 Calcium Level 8.1 mg/dl L 02/14/18 0546 Total Bilirubin 0.9 mg/dl 02/14/18 0546 Aspartate Amino Transf (AST/SGOT) 21 U/L 02/14/18 0546 Alanine Aminotransferase (ALT/SGPT) 35 U/L 02/14/18 0546 Alkaline Phosphatase 45 U/L 02/14/18 0546 Total Protein 4.6 g/dl L 02/14/18 0546 Albumin 2.4 g/dl L 02/14/18 0546 [facility] *LIVE* [address] [facility] [place] [address] LISSY SPARKS M.D., DIRECTOR OF LABORATORY SERVICES KISHORE ROACH M.D., PATHOLOGIST RUN DATE: 02/14/18 Specimen Inquiry Report PAGE 1 RUN TIME: 941 PATIENT: WILIAN MATTHEW ACCT: [id number] LOC: MED U : [id number] AGE/SX: 62/M ROOM: [facility] REG : 02/12/[address]: RIMA COELHO DO : 1955 BED: 274 DIS : STATUS: ADM IN TLOC: SPEC #: [id number] ARIANNE: 02/12/18 STATUS: RES REQ #: [id number] RECD: 02/12/[address]: RIMA COELHO DO SOURCE: PLEURAL FL ENTR: 02/12/[address] [facility] DR: FLORC: ORDERED: CULT BF/GS COMMENTS: Has specimen been collected/obtained? Y Procedure Result Verified GRAM STAIN Final 02/12/18 NO ORGANISMS SEEN MANY WHITE BLOOD CELLS CULTURE BODY FLUID Preliminary 02/14/18 <No reportable results for this procedure> Imaging FACILITY: [facility] [place] PATIENT NAME: Wilian Matthew : 1955 MR: [id number] V: [id number] EXAM DATE: ORDERING PHYSICIAN: SAMANTA MCCULLOUGH TECHNOLOGIST: Location: [facility] Patient: Wilian Matthew : 1955 Visit/Account:[id number] Date of Sevice: 02/14/2018 COMPUTED TOMOGRAPHY OF THE CHEST without contrast and ABDOMEN, AND PELVIS with CONTRAST DATE OF EXAM: 02/14/2018. INDICATION: . ileus vs. bowel obstruction and eval of emphysema. . TECHNIQUE: Contiguous axial CT images were obtained through the chest, abdomen, and pelvis. 75 cc [id number] administered during the abdomen and pelvis portion of the examination .. Coronal and sagittal reformatted images were submitted. COMPARISON: Chest radiograph and abdomen radiographs of February 13, 2018.. FINDINGS: Thyroid: Unremarkable. Thoracic inlet: No thoracic inlet adenopathy. Heart and great vessels: Heart size is normal. Mediastinum and michelle: There are hilar calcifications most notable on the right. A rounded pleural fluid loculation abuts the right hilum. Lungs and pleura: There continues to be a small to moderate right pleural effusion with a large bore chest tube in place in the right mid to upper chest posteriorly. There are loculations undrained by the chest tube. These are best demonstrated on the CT abdomen and pelvis portion of the examination or contrast is present There is a small pneumothorax on the right. Small volume of subcutaneous emphysema on the right lateral chest wall extending to the right flank. There is scarring at the left apex. There are a few small calcified granulomas in the left lung. Breast and axilla: Breast tissue is unremarkable. Liver and hepatic vasculature: Liver parenchymal density is diffusely decreased. There is a small cyst in the right lobe. Gallbladder and bile ducts: High density material in the gallbladder is likely contrast. Spleen: Calcification anteriorly within the splenic parenchyma. The spleen is blurred by motion. Pancreas: Normal appearing pancreas. Adrenals: Normal adrenals. Kidneys, ureters and bladder: Mild bilateral perinephric stranding is nonspecific. Retroperitoneum and aorta: Normal caliber aorta. GI tract, mesentery and peritoneum: No bowel obstruction. The small bowel is decompressed, and there is a normal volume of gas and stool in the colon. The esophagogastric tube terminates in the stomach. Bones and soft tissues: No acute osseous abnormality. IMPRESSION: 1. The small bowel is nondistended, and there is a normal volume of gas and stool in the colon. No obstruction. 2. The loculated right pleural effusion is incompletely drained by the large bore chest tube. There is also a small right-sided pneumothorax. 3. Relatively small volume of subcutaneous emphysema along the right lateral chest wall and right flank. 4. Mild bilateral perinephric stranding is nonspecific. Correlate with urinalysis. 5. Multiple chronic findings as above. One of the following dose optimization techniques was utilized in the performance of this exam: Automated exposure control; adjustment of the mA and/ or kV according to the patient's size; or use of an iterative reconstruction technique. Specific details can be referenced in the facility's radiology CT exam operational policy. Report Dictated By: Eduard Gonsalez MD at 02/14/2018 7:26 AM Report E-Signed By: Eduard Gonsalez MD at 02/14/2018 7:42 AM WSN:[id number] Assessment and Plan Problems: (1) Community acquired bacterial pneumonia Status: Acute Assessment & Plan: This may have been a possible aspiration episode as well. He did present with cough and right sided chest pain. His CT scan has revealed an infiltrate and loculated effusion on the right. His WBC and CRP were both elevated. He was on amoxicillin and doxycycline prior to admission. Therefore , we have placed him on empiric treatment with IV Primaxin. Chest tube has been placed but CT scan today shows no change in effusion. Surgery plans to take him for a VATS procedure today. Cultures show no bacteria in intial drainage from chest tube. Surgery will culture fluid obtained during VATS procedure as well. (2) Pleural effusion on right Assessment & Plan: Loculated effusion secondary to pneumonia (possibly aspiration). See above. (3) Essential hypertension Assessment & Plan: He is on chronic treatment with metoprolol. Monitor. (4) Ileus Status: Acute Assessment & Plan: Surgery helping manage. NG was placed. Keep NPO. Continue IV fluids. CT of abdomen today does not show any obstruction. (5) Anemia, unspecified Status: Acute Assessment & Plan: The patient's H/H has dropped. No evidence of acute blood loss thus far. May be dilutional and also related to his acute infection. He has been typed and crossed for 2u PRBCs prior to going to OR. Will monitor. Time Spent on Plan of Care: < 30 min Exam Sepsis Risk: Sepsis Risk LEAH HOPKINS MD Feb 14, 2018 10:00
[2018-02-14] MEDS: ceFAZolin 1 GM VIAL IVP ONE ×2 (11:25→11:36)
[2018-02-14] MEDS ORDERED: NS 0.9% 20 ML SDV 20 ML ONE (11:39)
[2018-02-14] MEDS ORDERED: ceFAZolin 1 GM VIAL ONE (11:40)
[2018-02-14] MEDS ORDERED: fentaNYL CITR 100 MCG/2 ML AMP ONE (12:04)
[2018-02-14] MEDS: ORAL SUCTION/CHLORHX/SWAB KIT MT SCH ×2 (13:55→21:42)
--- NOTE | 2018-02-14 14:09 | Miscellaneous Provider Note ---
Miscellaneous Provider Note Note Patient s/p VATS procedure. Anesthesia reports that the patient had a lot of thick secretions during intubation. Recommends keeping him intubated overnight. Will place on propofol for sedation as he tolerated this well during the procedure. Per surgery the procedure was successful. A bronchoscopy is planned for later today to clear secretions. Will repeat ABG after bronchoscopy and adjust ventilator as needed. CXR now shows the ET tube to be about 2 cm about the brenna after adjusting it upward a bit. The patient's BP is in the 120s systolic. Pulse is 105. He is currently on an FIO2 of 75% with O2 saturations of 97%. Art line is in place in left wrist. Heart is tachy, regular. Lungs with coarse breath sounds anteriorly without rhonchi or wheezing. Will keep intubated and sedated in ICU overnight. Repeat CXR, ABG and labs in am. LEAH HOPKINS MD Feb 14, 2018 14:09
--- NOTE | 2018-02-14 14:17 | RADIOLOGY IMAGING REPORT ---
FACILITY: [facility] PATIENT NAME: Wilian Matthew : 1955 MR: [id number] V: [id number] EXAM DATE: ORDERING PHYSICIAN: LEAH HOPKINS TECHNOLOGIST: Location: [facility] Patient: Wilian Matthew : 1955 Visit/Account:[id number] Date of Sevice: 02/14/2018 EXAMINATION: Portable AP Chest 02/14/2018 1:32 PM HISTORY: pneumonia, intubated COMPARISON: 5:[address] this morning. FINDINGS: Cardiomediastinal contours: Patient has been intubated with tip just over 2.5 cm above the brenna. Ca rdiac mediastinal contours are stable. Lungs and pleura: Large bore chest tube on the right has been repositioned. Loculated effusion in the apex is now essentially cleared.. Bibasilar atelectasis, and this probably accounts for the left bas ilar haziness rather than pleural fluid given the absence of fluid on the CT. No pneumothorax. Bones/soft tissues: Normal Cardiac leads are present. Tubing over the lateral right upper abdomen and thoracoabdominal area is p robably external rather than a chest tube unless a second basilar chest tube has been placed. IMPRESSION: 1. Interval intubation with good tube positioning. 2. Repositioning of indwelling right chest tube. Loculated effusion is significantly improved and aer ation in the right upper lung is nearly normalized. There is persistent basilar opacity bilaterally. Report Dictated By: Wang Chapman MD at 02/14/2018 2:07 PM Report E-Signed By: Wang Chapman MD at 02/14/2018 2:13 PM WSN:[id number]
[2018-02-14] MEDS ORDERED: NS(*) 0.9% 1000 ML BAG 1,000 ML IV PRN (14:35)
[2018-02-14] MEDS: PROPOFOL(*)1000 MG/100 ML VIAL 100 ML IV PRN ×3 (14:36→23:18)
[2018-02-14] MEDS ORDERED: fentaNYL CITR 250 MCG/5 ML AMP 1,500 MCG in NS 0.9% 150 ML BAG 120 ML IVP ONE (14:45)
[2018-02-14 14:49] LABS: PLATELET COUNT, AUTOMATED 232 K/uL (150-450)
[2018-02-14] MEDS ORDERED: fentaNYL CITR 250 MCG/5 ML AMP 1,500 MCG in NS 0.9% 150 ML BAG 120 ML IVPB PRN (14:50)
[2018-02-14] MEDS ORDERED: NS 0.9% IRRIG(*) 1000ML PLCT 1,000 ML ONE (15:34)
[2018-02-14] MEDS ORDERED: VECURONIUM BROM(*) 10 MG/VIAL 10 MG in NS(*) 0.9% 100 ML BAG 100 ML IV ONE (15:45)
--- NOTE | 2018-02-14 16:12 | RADIOLOGY IMAGING REPORT ---
FACILITY: [facility] [place]IENT NAME: Wilian Matthew : 1955 MR: [id number] V: [id number] EXAM DATE: ORDERING PHYSICIAN: SAMANTA MCCULLOUGH TECHNOLOGIST: Location: [facility] [place] Patient: Wilian Matthew : 1955 Visit/Account:[id number] Date of Sevice: 02/14/2018 CHEST SINGLE AP History: post bronch FINDINGS: Comparison studies: Comparison study earlier today at 1335 hours Tubes and Lines: Patient remains a made with tube tip 2 cm above the brenna. Right-sided chest tube noted with right lung apex unchanged. Lungs and pleura: There is mild interval bilateral improvement of pulmonary aeration although persi stent interstitial opacities persist. There is no evidence of pneumothorax status post bronchoscopy. Mediastinum: normal. Cardiac silhouette: normal . Osseous structures: Unremarkable for age . IMPRESSION: Persistent but improved pulmonary interstitial pulmonary opacities status post bronchoscopy. No adv erse sequelae noted. Support tubes and lines unchanged and appear well-positioned. Report Dictated By: Richmond Tran MD at 02/14/2018 4:05 PM Report E-Signed By: Richmond Tran MD at 02/14/2018 4:09 PM WSN:[id number]
--- NOTE | 2018-02-14 16:37 | OPERATIVE REPORT 1 ---
EVENT DATE: February 14, 2018 SURGEON: Garrett Cabrera MD ANESTHESIOLOGIST: Wei Devi MD ANESTHESIA: General endotracheal anesthesia. POWER CLEANER OPERATOR: None PREOPERATIVE DIAGNOSIS Empyema. POSTOPERATIVE DIAGNOSIS Empyema. PROCEDURES PERFORMED 1. Video-assisted thoracoscopic surgery, right-sided. 2. Washout and drainage of loculated collection in the right posterior pleural space. 3. Mechanical pleurodesis. ESTIMATED BLOOD LOSS 200 mL WOUND CLASS Class 3, contaminated. FINDINGS 1. Subcutaneous hematoma near site of prior chest tube was from subcutaneous bleeder. 2. Loculated necrotic-appearing collection of old hematoma with no alexx purulence in the right posterior apical space. This was thoroughly debrided and irrigated. PROCEDURE DETAILS Patient was brought to the operating room and underwent general endotracheal intubation with a dual-lumen endotracheal tube. The position was checked with bronchoscopy. He was then positioned into the left lateral decubitus position with the right thorax up. His previously placed right-sided chest tube was removed. Ancef 2 g were infused prior to making an incision. Patient was prepped and sterilely draped. A timeout was then performed. I began by entering the incision from his previous chest tube site and exploring this wound as there appeared to be a hematoma collecting over this area. I evacuated the hematoma and found a bleeder in the subcutaneous tissue which was cauterized. I used the thoracostomy in this area to place a 10 mm trocar. I placed my 5 mm, 30-degree scope into the space and was within the necrotic cavity. I then placed two additional 5 mm ports both posterior to this port and began by debriding the necrotic cavity bluntly using both the suction glass forming crew member and a laparoscopic grasper. I irrigated the area, and I removed all of the necrotic cavity wall from the pleura. I then performed a pleurodesis using a Bovie scratch pad of the upper lung apices. Following this and ensuring adequate hemostasis, I placed two large-bore chest tubes, one 40- Kenyan straight chest tube into the right posterior apex and one 36-Kenyan right -angled tube across the diaphragm. I pulled these out through my previous 5 mm trocar sites. I then confirmed the position of the tube under direct vision, and I then re-expanded the lung cavity and closed my most anterior site in two layers using running 2-0 Vicryl and skin oscar. I then placed a sterile dressing over this. I secured the chest tubes with 2-0 silk sutures and placed Vaseline gauze around the exit site to prevent air leakage. I then dressed these chest tubes, and patient was placed back into the prone position. His dual-lumen tube was exchanged for a single-lumen endotracheal tube. He was transported to the PACU intubated where he will undergo a bronchoscopy with BAL to both clear secretions and also to kimberly our antibiotic therapy. ADAN
--- NOTE | 2018-02-14 16:47 | OPERATIVE REPORT 1 ---
EVENT DATE: February 14, 2018 SURGEON: Garrett Cabrera MD ANESTHESIOLOGIST: Wei Devi MD ANESTHESIA: Propofol and vecuronium. CLINICAL LABORATORY SCIENTIST: None. PREOPERATIVE DIAGNOSES 1. Pneumonia. 2. Empyema. POSTOPERATIVE DIAGNOSES 1. Pneumonia. 2. Empyema. PROCEDURE PERFORMED Bronchoscopy. FINDINGS Purulent mucus plugging noted bilaterally, worse on the right than on the left. PROCEDURE IN DETAIL A critical care nurse was available during the procedure to monitor vital signs and administer medications. A consent was obtained prior to performing the procedure. The ventilator was set to volume control mode at 100% FiO2. The patient was given in addition to his propofol drip 10 mg of vecuronium. I advanced the bronchoscope down the endotracheal tube and identified the brenna. I first went down the right side, which was the side of his empyema and was able to irrigate the purulence of each bronchial segment using irrigation and suction. I then performed the same procedure on the left side. After copiously irrigating, I performed bronchoscopy with 30 mL of normal saline. I performed a BAL with 30 mL of normal saline on either side and sent this for Gram stain and culture. I then performed one more check of either side to make sure everything was sucked out and clean looking. I removed my bronchoscopy tube and placed the patient back on his normal ventilator settings. ADAN
[2018-02-14] MEDS ORDERED: NS(*) 0.9% 500 ML BAG 500 ML IV ONE (17:10)
--- NOTE | 2018-02-14 21:05 | Miscellaneous Provider Note ---
Miscellaneous Provider Note Note Patient underwent bronchoscopy and following bronch was tachycardic and hypertensive. ABG revealed that he was quite acidotic and his pCO2 was elevated over 80. Vent settings adjusted and repeat ABG showed improvement with pCO2 improving to 60. Vent settings further adjusted and repeat ABG now where desired , but with increased pO2. Will decreased FiO2 and monitor saturations ( currently 100%). The patient's heart rate has decreased to 105 (with axillary temp of 100.1) and BP is low 100s systolic. Continue to monitor in ICU. LEAH HOPKINS MD Feb 14, 2018 21:05
[2018-02-15] VITALS (52 sets, daily range): BP systolic 97–177; BP diastolic 53–98
[2018-02-15] MEDS: IMIPENEM/CILASTA(*) 500MG VIAL 500 MG in NS(*) 0.9% 100 ML BAG 100 ML IVPB SCH ×4 (02:31→19:47)
[2018-02-15] MEDS: PROPOFOL(*)1000 MG/100 ML VIAL 100 ML IV PRN ×3 (02:31→09:05)
[2018-02-15 06:06] LABS: PLATELET COUNT, AUTOMATED 154 K/uL (150-450)
--- NOTE | 2018-02-15 07:34 | RADIOLOGY IMAGING REPORT ---
FACILITY: [facility] [place] PATIENT NAME: Wilian Matthew : 1955 MR: [id number] V: [id number] EXAM DATE: ORDERING PHYSICIAN: LEAH HOPKINS TECHNOLOGIST: Location: [facility] Patient: Wilian Matthew : 1955 Visit/Account:[id number] Date of Sevice: 02/15/2018 ADDENDUM #1 The impression should read "tubes and lines as above..." Report Dictated By: Eduard Gonsalez MD at 02/16/2018 6:25 AM Report E-Signed By: Eduard Gonsalez MD at 02/16/2018 6:26 AM ORIGINAL REPORT INDICATION: pneumonia, intubated. Pneumonia DATE: 02/15/2018 7:27 AM. TECHNIQUE: CHEST SINGLE AP COMPARISON: Chest radiograph 02/14/2018 FINDINGS: The endotracheal tube is positioned above the brenna. Probable small bilateral effusions. T here is hazy opacity in the right chest which may be due to the effusion. There is a right apical abdullahi st tube. Interstitium remains prominent in the right lung. IMPRESSION: 2 lines as above with persistent small effusions. Persistent interstitial opacity in the right lung. Report Dictated By: Eduard Gonsalez MD at 02/15/2018 7:27 AM Report E-Signed By: Eduard Gonsalez MD at 02/15/2018 7:30 AM WSN:[id number]
[2018-02-15] MEDS ORDERED: NS(*) 0.9% 500 ML BAG 500 ML IV PRN (08:00)
[2018-02-15] MEDS: ORAL SUCTION/CHLORHX/SWAB KIT MT SCH (08:23)
--- NOTE | 2018-02-15 08:35 | Hospitalist Progress Note ---
Subjective Progress Notes Subjective Sedated on ventilator. Some intermittent agitation despite sedation. Temperature is down. HR improved. Oxygenating well on FiO2 40%. Physical Exam Vital Signs Date Time Temp Pulse Resp B/P (MAP) Pulse Ox O2 Delivery O2 Flow Rate FiO2 02/15/18 08:23 40.0 02/15/18 08:15 99.2 96 22 123/65 02/15/18 06:42 95 Mechanical Ventilator 02/14/18 09:44 4.0 General Appearance: Other (sedated on ventilator) Cardiovascular: Regular Rate and Rhythm Respiratory: Other (right side with pleural rub/left fairly clear) GI: Other (BS present) Extremities: Warm, Perfused Result Diagram: 02/15/18 0530 02/15/18 0530 Assessment and Plan Problems: (1) Community acquired bacterial pneumonia Status: Acute Assessment & Plan: This may have been a possible aspiration episode as well. He did present with cough and right sided chest pain. His CT scan has revealed an infiltrate and loculated effusion on the right. His WBC and CRP were both elevated. He was on amoxicillin and doxycycline prior to admission. We initially placed him on empiric treatment with IV Primaxin. Chest tube was placed, but CT scan yesterday showed no significant change in effusion. Surgery took him for a VATS procedure yesterday. He remains intubated post-op. Cultures are all still negative to this point, but he had been on antibiotics before any/ all cultures were obtained. Hopefully, will try to get extubated today - discuss with surgery. (2) Pleural effusion on right Assessment & Plan: Loculated effusion secondary to pneumonia (possibly aspiration). See above. (3) Essential hypertension Assessment & Plan: He has been on chronic treatment with metoprolol. Currently holding. His BPs have been in low normal range. (4) Ileus Status: Acute Assessment & Plan: Surgery helping manage. NG was placed. Continue IV fluids. CT of abdomen yesterday did not show any obstruction. (5) Anemia, unspecified Status: Acute Assessment & Plan: The patient's H/H has dropped. The acute loss is probably related to surgical procedure. He will be transfused 2u PRBCs today. Watch counts. Exam Sepsis Risk: Sepsis Risk MAYKEL HOPKINS MD Feb 15, 2018 08:35
--- NOTE | 2018-02-15 09:24 | General Surgery Progress Note ---
Subjective Progress Notes Subjective drop in hgb overnight cxr stable 300 cc out of CTs no fevers Physical Exam Vital Signs Date Time Temp Pulse Resp B/P (MAP) Pulse Ox O2 Delivery O2 Flow Rate FiO2 02/15/18 08:32 99.0 92 18 123/65 02/15/18 08:25 94 Mechanical Ventilator 40.0 02/14/18 09:44 4.0 Intake and Output 02/16/18 07:00 Intake Total 216 ml Output Total 330 ml Balance -114 ml IV Total 216 ml Output Urine Total 330 ml General Appearance: Other (sedated) Neuro: No Gross deficits ENT: Other (ETT) Cardiovascular: Regular Rate and Rhythm Respiratory: Other (good bs b/l, CT x2 on the right) GI: Soft and Non-Tender Musculoskeletal: No Weakness/Pain Extremities: Soft and Non Tender Integumentary: Skin Intact without Lesion / Mass Result Diagram: 02/15/1852902/15/18 05 Assessment and Plan Problems: (1) Pleural effusion *Optional Permanent Comment*: Last Edited By: Samanta Cabrera MD on Feb 13, 2018 08:42 Status: Acute Assessment & Plan: 02/13 cxray today shows improved air spaces and reduction of effusions 825cc serosanguinous fluid out from CT yesterday continue on suction, small apical pneumothorax continue TPA protocol repeat chest CT tomorrow continue abx for pneumonia 02/14 pleural collection appears to be thick and increased in size compared to prior Chest tube may have been pulled back Plan for VATS today, consent obtained. type and screen sent. 02/15 POD1 right VATs for empyema chest xray stable from postop cultures pending on Bronch, continue empiric abx plan to extubate today continue chest tubes to 20mm suction hbg down today 7.7, transfusion in progress (2) Ileus Status: Acute Assessment & Plan: 02/[address] NGT if large gastric bubble. make NPO, continue IVFs 02/14 ileus has resolved and NGT output decreased CT shows decompressed bowels passing flatus will remove NGT after VATS 02/15 NGT out will start clear liquid diet when patient extubates Exam Sepsis Risk: Sepsis Risk SAMANTA CABRERA MD Feb 15, 2018 09:23
[2018-02-15] MEDS ORDERED: FUROSEMIDE 20 MG/2 ML VIAL IVP ONE (12:20)
--- NOTE | 2018-02-15 12:34 | Medical Nutrition Therapy ---
Nutrition Anthropometrics Weight (Pounds): 186 Weight (Calculated Kilograms): 84.397 Jose Nutrition Score: Probably Inadequate Jose Nutrition Risk Score: 11 Dietary Referral Nutrition Risk Factors: Nutrition Risk Comment: Nutritional Diagnosis Nutritional Risk Acuity 1: Ileus Past Medical History: Afib, HTN Nutritional Acuity: 1-High Nutrition Diagnosis: Inadequate Food Intake Nutrition Etiology: Physiological Causes Nutrition Problem/Etiology/Sym: AEB diet order of NPO Energy Requirement: 2940 (35kcal/kg) Protein Requirement: 81 (1gm/kg) Fluid Requirement: 2430 (30ml/kg) Diet Type: NPO (Nothing by Mouth) Nutrition Intervention: Incr diet as tolerated Nutrition Monitoring & Eval Nutrition Goals: Eat 75-100% Meal RD Patient Assessment Time: [address] Assessment Type: RD Re-Assessment Patient Nutrition Acuity: 1-High Follow Up Date: Feb 16, 2018 Nutritional Comment: 02/13 Pt. admitted with acute bacterial pneumonia with pleural effusion on rt. side. Pt was on regular diet and ate 100% but then developed an ileus and diet changed to NPO. Experiencing nausea. . Creatinine 1.5, glucose 128, alb 3.9. No edema. Abdomen round and hypoactive bowel. Will monitor. BELKIS 02/15 Pt cont 3rd day NPO. Pt was on mechanical vent but has now been extubated. NG suction has d/araseli. Alb declined to 2.2 H/H cont low. Recommend nutr support if diet not increased in 24 hrs. SHMUEL KEY Feb 15, 2018 12:33
[2018-02-15] MEDS: HYDROmorphone HCL 2 MG/ML SDV IVP PRN ×2 (13:36→16:16)
[2018-02-15] MEDS: ONDANSETRON 4 MG/2 ML VIAL IVP PRN ×2 (13:36→19:31)
[2018-02-15] MEDS: ACETAMINOPHEN(*)1000 MG/100 ML 100 ML IVPB PRN (15:16)
[2018-02-15] MEDS: APAP/HYDROCODONE 325/5 TAB PO PRN (19:47)
[2018-02-16] VITALS (16 sets, daily range): BP systolic 118–139; BP diastolic 73–83
[2018-02-16] MEDS: IMIPENEM/CILASTA(*) 500MG VIAL 500 MG in NS(*) 0.9% 100 ML BAG 100 ML IVPB SCH ×2 (01:16→08:35)
[2018-02-16] MEDS: APAP/HYDROCODONE 325/5 TAB PO PRN ×2 (05:34→13:48)
[2018-02-16 05:41] LABS: PLATELET COUNT, AUTOMATED 142 K/uL (150-450)
--- NOTE | 2018-02-16 06:18 | General Surgery Progress Note ---
Subjective Progress Notes Subjective no major issues doing well hgb stable after transfusion low output from chest tubes Physical Exam Vital Signs Date Time Temp Pulse Resp B/P (MAP) Pulse Ox O2 Delivery O2 Flow Rate FiO2 02/16/18 05:44 73 02/16/18 05:41 96 High-Flow Nasal Cannula 5.0 02/16/18 05:00 98.8 20 123/79 (94) 02/15/18 11:00 40.0 General Appearance: Alert, Awake, No Acute Distress ENT: Normal Cardiovascular: Normal Rhythm & Peripheral Pulses Respiratory: Clear to Auscultation, Other (diminished slightly in right base) GI: Soft and Non-Tender Extremities: Soft and Non Tender Integumentary: Skin Intact without Lesion / Mass Psych: Alert & Oriented X3 Result Diagram: 02/16/18 0522 02/16/18 0512 Assessment and Plan Problems: (1) Pleural effusion *Optional Permanent Comment*: Last Edited By: Samanta Cabrera MD on Feb 13, 2018 08:42 Status: Acute Assessment & Plan: 02/13 cxray today shows improved air spaces and reduction of effusions 825cc serosanguinous fluid out from CT yesterday continue on suction, small apical pneumothorax continue TPA protocol repeat chest CT tomorrow continue abx for pneumonia 02/14 pleural collection appears to be thick and increased in size compared to prior Chest tube may have been pulled back Plan for VATS today, consent obtained. type and screen sent. 02/15 POD1 right VATs for empyema chest xray stable from postop cultures pending on Bronch, continue empiric abx plan to extubate today continue chest tubes to 20mm suction hbg down today 7.7, transfusion in progress (2) Ileus Status: Acute Assessment & Plan: 02/[address] NGT if large gastric bubble. make NPO, continue IVFs 02/14 ileus has resolved and NGT output decreased CT shows decompressed bowels passing flatus will remove NGT after VATS 02/15 NGT out will start clear liquid diet when patient extubates Exam Sepsis Risk: No Definite Risk SAMANTA CABRERA MD Feb 16, 2018 06:18
--- NOTE | 2018-02-16 06:29 | RADIOLOGY IMAGING REPORT ---
FACILITY: [facility] PATIENT NAME: Wilian Matthew : 1955 MR: [id number] V: [id number] EXAM DATE: ORDERING PHYSICIAN: MAYKEL HOPKINS TECHNOLOGIST: [place] [facility] [place] Patient: Wilian Matthew : 1955 Visit/Account:[id number] Date of Sevice: 02/16/2018 INDICATION: pneumonia. Pneumonia DATE: 02/16/2018 6:21 AM. TECHNIQUE: CHEST SINGLE AP COMPARISON: Chest radiograph of one day prior. FINDINGS: Haziness in the right lung has resolved. A large bore right apical chest tube remains in pl rylee, and there is a right basilar chest tube as well. The endotracheal tube has been removed. The int erstitium remains mildly prominent. The right hemidiaphragm is chronically elevated with respect to t he left. There is subcutaneous emphysema in the right axillary region. IMPRESSION: Resolution of haziness in the right chest suggesting that this may have been technique related or katie t a pleural effusion has been evacuated. Report Dictated By: Eduard Gonsalez MD at 02/16/2018 6:21 AM Report E-Signed By: Eduard Gonsalez MD at 02/16/2018 6:25 AM WSN:[id number]
--- NOTE | 2018-02-16 10:09 | Hospitalist Progress Note ---
Subjective Progress Notes Subjective This patient was admitted for pneumonia. He had a VATS procedure over the weekend and was extubated yesterday. Patient Complains of: Cardiovascular: No: Chest Pain Respiratory: No: Shortness of Breath Physical Exam Vital Signs Date Time Temp Pulse Resp B/P (MAP) Pulse Ox O2 Delivery O2 Flow Rate FiO2 02/16/18 06:49 82 02/16/18 06:00 20 123/77 (92) 96 High-Flow Nasal Cannula 3.0 02/16/18 05:00 98.8 02/15/18 11:00 40.0 Intake and Output 02/17/18 07:00 Intake Total 360 ml Output Total 350 ml Balance 10 ml Intake Oral 360 ml Output Urine Total 350 ml Cardiovascular: Regular Rate and Rhythm Respiratory: Other (Bilateral breath sounds present. No free air on right.) GI: Soft and Non-Tender Extremities: No Edema Integumentary: No Cyanosis Result Diagram: 02/16/18 0502/16/18511 Item Value Date Time Gram Stain - Final Resulted 02/12/181954 Pleural Fluid Imaging Chest x-ray reviewed. Assessment and Plan Problems: (1) Community acquired bacterial pneumonia Status: Acute Assessment & Plan: This may have been a possible aspiration episode as well. He did present with cough and right sided chest pain. His CT scan has revealed an infiltrate and loculated effusion on the right. His WBC and CRP were both elevated. He was on amoxicillin and doxycycline prior to admission. We placed him on empiric treatment with IV Primaxin. A culture from his pleural fluid is showing gram positive cocci. A chest tube was placed initially, but he continued to have loculations and had to have a VATS over the weekend. His chest tubes are placed to water seal today. His CRP was increased, but is decreasing. A repeat is ordered for the morning. (2) Pleural effusion on right Assessment & Plan: Loculated effusion secondary to pneumonia (possibly aspiration). See above. (3) Essential hypertension Assessment & Plan: He has been on chronic treatment with metoprolol, which is currently on hold. His blood pressure remains stable without treatment. (4) Ileus Status: Acute Assessment & Plan: Resolved. He has advanced to clear liquids. (5) Anemia, unspecified Status: Acute Assessment & Plan: He did require transfusions with two units of red cells yesterday. His Hgb is stable today. Exam Sepsis Risk: No Definite Risk RIMA COELHO DO Feb 16, 2018 10:09
--- NOTE | 2018-02-16 11:59 | Antimicrobial Stewardship ---
Antimicrobial Time Out Antimicrobial Stewardship MD Service: Hospitalist Indications: CAP, Other (Possible Aspiration Pneumonia) Antimicrobial Used Primaxin Start Date: Feb 13, 2018 Culture Results: Yes (Bronchial washings and pleural fluid growing: alpha hemolytic strep (possible viridans strep or s. pneumoniae), Blood Cx - NGTD ( day 4)) Eligible for PO Conversion Eligable for PO Conversion: Yes (Pt with resolved ileus, normal wbc, afebrile, ok to de-escalate and change to po antibiotics) Reviewed with Provider Reviewed w/ Provider on Rounds: Yes Date Reviewed w/ Provider: Feb 16, 2018 (reviewed 02/13 and 02/16) Comments Comments 62 yo M with history of 6 weeks of cough, here on vacation, s/p two courses of antibiotics (amoxicillin, doxycycline + prednisone), with a history of tendon rupture on a quinolone. afebrile on admission with elevated wbcs 17.1, s/p VATs, chest tubes to water seal, resolved ileus Now afebrile, wbc wnl Cultures: Blood cx NGTD (day 4), Pleural fluid and bronchial washings - alpha hemolytic strep (+), yeast (likely normal carlos--not treated, was on prednisone , wbcs normal, afebrile) Recommend: De-escalate to Augmentin 875mg po BID to complete 10 days of therapy , today is day 4 of antibiotics. Kristie Dinero, PharmD, BCOP KRISTIE DINERO Feb 16, 2018 11:59
--- NOTE | 2018-02-16 12:51 | Medical Nutrition Therapy ---
Nutrition Anthropometrics Weight (Pounds): 187 Weight (Calculated Kilograms): 84.822 Jose Nutrition Score: Adequate Jose Nutrition Risk Score: 17 Dietary Referral Nutrition Risk Factors: Nutrition Risk Comment: Nutritional Diagnosis Nutritional Risk Acuity 3: Fair Appetite Past Medical History: Afib, HTN, ileus (resolved) Nutritional Acuity: 1-High Nutrition Diagnosis: Inadequate Food Intake Nutrition Etiology: Physiological Causes Nutrition Problem/Etiology/Sym: inadequate food intake r/t physiological causes AEB prev. diet order of NPO and alb. trending downward. Energy Requirement: 2940 (35kcal/kg) Protein Requirement: 81 (1gm/kg) Fluid Requirement: 2430 (30ml/kg) Diet Type: Diet as Tolerated ANGELA/REG Nutrition Intervention: Cont diet as ordered, Encourage intake Diet Comment To RSA: Add protein powder to appropriate foods and encourage high protein intake. Nutrition Monitoring & Eval Nutrition Goals: Eat 75-100% Meal, Drink > 2 liters/day RD Patient Assessment Time: [address] Assessment Type: RD Re-Assessment Patient Nutrition Acuity: 2-Moderate Follow Up Date: Feb 20, 2018 Nutritional Comment: 02/13 Pt. admitted with acute bacterial pneumonia with pleural effusion on rt. side. Pt was on regular diet and ate 100% but then developed an ileus and diet changed to NPO. Experiencing nausea. . Creatinine 1.5, glucose 128, alb 3.9. No edema. Abdomen round and hypoactive bowel. Will monitor. BK 02/15 Pt cont 3rd day NPO. Pt was on mechanical vent but has now been extubated. NG suction has d/araseli. Alb declined to 2.2 H/H cont low. Recommend nutr support if diet not increased in 24 hrs. BK 02/16 Pt. placed on reg. diet after 3 days NPO. This AM during rounds he was very hungry - ordered eggs, 2 ibanez, whole milk and banana. Seemed to be tolerating well but no intake recorded yet. Alb. continues to trend downward at 1.9 today. Hgb/Hct also low. Ileus resolved. Will need to encourage food intake, babar. protein. Recommend protein powder supplement. Will continue to monitor labs and intake. KEITH GUZMÁN Feb 16, 2018 10:37
--- NOTE | 2018-02-16 13:17 | RADIOLOGY IMAGING REPORT ---
FACILITY: PATIENT NAME: Wilian Matthew : 1955 MR: [id number] V: [id number] EXAM DATE: ORDERING PHYSICIAN: SAMANTA MCCULLOUGH [place]CHN[place] [facility] [place]ian [place] : 1955 Visit/Account:[id number] Date of Sevice: 02/16/2018 CHEST SINGLE AP Indication: Chest tube on waterseal. Comparison: 02/16/2018 at 6:07 AM Findings: There are 2 right-sided chest tubes which are unchanged in position. There is elevation of the right hemidiaphragm with central right perihilar interstitial opacities. L eft lung is well aerated. No pneumothorax is seen bilaterally. No definite pleural effusion. Heart size and mediastinal contours are normal. IMPRESSION: 1. No evidence of right-sided pneumothorax with chest tubes on waterseal. 2. No significant interval change since the examination earlier this morning as detailed above. Report Dictated By: Jefferson Lopez at 02/16/2018 1:11 PM Report E-Signed By: Jefferson Lopez at 02/16/2018 1:13 PM WSN:[email or web address]
[2018-02-16] MEDS ORDERED: AMOX/CLAV 875 MG TAB PO SCH (17:00)
[2018-02-16] MEDS: ACETAMINOPHEN(*)1000 MG/100 ML 100 ML IVPB PRN (23:52)
[2018-02-17] MEDS ORDERED: IMIPENEM/CILASTATIN 500MG VIAL IVPB ONE (00:09)
[2018-02-17] MEDS: IMIPENEM/CILASTA(*) 500MG VIAL 500 MG in NS(*) 0.9% 100 ML BAG 100 ML IVPB SCH ×5 (00:44→23:26)
[2018-02-17 03:34] VITALS: BP 152/92
[2018-02-17 06:24] LABS: PLATELET COUNT, AUTOMATED 171 K/uL (150-450)
--- NOTE | 2018-02-17 06:56 | RADIOLOGY IMAGING REPORT ---
FACILITY: [facility] - [place] PATIENT NAME: Wilian Matthew : 1955 MR: [id number] V: [id number] EXAM DATE: ORDERING PHYSICIAN: RIMA KINGSLEY TECHNOLOGIST: Location: [facility] - [place] Patient: Wilian Matthew : 1955 Visit/Account:[id number] Date of Sevice: 02/17/2018 CHEST SINGLE AP COMPARISONS: Single view chest dated February 16, 2018 ADDITIONAL PERTINENT HISTORY: History of empyema status post VATS FINDINGS: Life-support: Right-sided chest tube stable in position. Cardiomediastinal silhouette: Negative. Pulmonary vasculature: Negative. Lung felder: Strandy opacity at the right lung base with elevation of the right hemidiaphragm likely representing atelectatic change. Pleural spaces: Negative. Osseous structures: Negative. Surrounding soft tissues: Continued mild subcutaneous emphysema along the inferior right chest wall. IMPRESSION: No significant change since previous exam. Report Dictated By: Gavino West MD at 02/17/2018 6:50 AM Report E-Signed By: Gavino West MD at 02/17/2018 6:52 AM WSN:[id number]
[2018-02-17 07:29] VITALS: BP 163/92
[2018-02-17] MEDS ORDERED: SALINE 0.65% NAS SPR 44 ML BTL PRN (08:40)
--- NOTE | 2018-02-17 08:40 | General Surgery Progress Note ---
Subjective Progress Notes Subjective No complaints. Physical Exam Vital Signs Date Time Temp Pulse Resp B/P (MAP) Pulse Ox O2 Delivery O2 Flow Rate FiO2 02/17/18 07:34 94 Nasal Cannula 2.5 02/17/18 07:29 98.1 82 22 163/92 (115) 02/15/18 11:00 40.0 General Appearance: Alert, Awake, No Acute Distress, Afebrile Respiratory: Other (Left clear. Right coarse) Chest: Other (Both chest tubes with small amount of serosanguinous drainage. Tidaling. No air leak. CXR stable.) GI: Soft and Non-Tender Extremities: Warm, Perfused Result Diagram: 02/17/18 0543 02/16/18 0512 Assessment and Plan Problems: (1) Pleural effusion *Optional Permanent Comment*: Last Edited By: Garrett Cabrera MD on Feb 13, 2018 08:42 Status: Acute Assessment & Plan: 02/13 cxray today shows improved air spaces and reduction of effusions 825cc serosanguinous fluid out from CT yesterday continue on suction, small apical pneumothorax continue TPA protocol repeat chest CT tomorrow continue abx for pneumonia 02/14 pleural collection appears to be thick and increased in size compared to prior Chest tube may have been pulled back Plan for VATS today, consent obtained. type and screen sent. 02/15 POD1 right VATs for empyema chest xray stable from postop cultures pending on Bronch, continue empiric abx plan to extubate today continue chest tubes to 20mm suction hbg down today 7.7, transfusion in progress 02/16/18: POD#2 s/p right VATS. DOign well. CXR looks good on water seal. Will continue water seal and check CXR in am. If looks good will remove 1 of the chest tubes tomorrow morning and the second the day after if the CXRs continue to look good. 02/17/18: POD#3. Doing well. CXR stable. Inferior chest tube removed. Will get post-pull CXR later today and then in am and if looks good, will remove remaining chest tube tomorrow morning. (2) Ileus Status: Acute Assessment & Plan: 02/[address] NGT if large gastric bubble. make NPO, continue IVFs 02/14 ileus has resolved and NGT output decreased CT shows decompressed bowels passing flatus will remove NGT after VATS 02/15 NGT out will start clear liquid diet when patient extubates Condition Stable. Time Spent: < 30 min Exam Sepsis Risk: No Definite Risk RIMA KINGSLEY MD Feb 17, 2018 08:40
[2018-02-17] MEDS: POLYETHYLENE GLYCOL 17 GM PKT PO SCH (09:40)
[2018-02-17] MEDS: DOCUSATE SODIUM 100 MG CAP PO SCH ×2 (09:43→21:00)
[2018-02-17 10:59] VITALS: BP 150/89
--- NOTE | 2018-02-17 13:14 | RADIOLOGY IMAGING REPORT ---
[place] [facility] [place] NAME: Wilian Matthew : 1955 MR: [id number] V: [id number] EXAM DATE: ORDERING PHYSICIAN: RIMA KINGSLEY TECHNOLOGIST: Location: [facility] Patient: Wilian Matthew : 1955 Visit/Account:[id number] Date of Sevice: 02/17/2018 CHEST SINGLE AP HISTORY: Right chest tube. COMPARISON: February 17, 2018 at 0547 hours. FINDINGS: Cardiomediastinal contours: The heart is enlarged. Lungs and pleura: There is volume loss on the right side and there is parenchymal density in the righ t lung base. Aeration is improved in the left lung. The inferior right chest tube is been removed. There is subcutaneous emphysema but no air in the pleural space. There is mild right lateral pleura l thickening. Bones/soft tissues: There are no findings of a fracture. IMPRESSION: 1. Volume loss on the right side in this patient status post right chest surgery is again noted but there is mildly improved aeration. 2. Removal of the right inferior chest tube. No pneumothorax. Residual subcutaneous emphysema. 3. Stable position of right more superior chest tube. Report Dictated By: Marko Echevarria MD at 02/17/2018 1:08 PM Report E-Signed By: Marko Echevarria MD at 02/17/2018 1:09 PM WSN:[email or web address]
--- NOTE | 2018-02-17 13:15 | Hospitalist Progress Note ---
Subjective Progress Notes Subjective He is having a productive cough. One chest tube was removed today. Physical Exam Vital Signs Date Time Temp Pulse Resp B/P (MAP) Pulse Ox O2 Delivery O2 Flow Rate FiO2 02/17/18 10:59 101.8 92 32 150/89 (109) 93 Nasal Cannula 2.5 02/15/18 11:00 40.0 Intake and Output 02/18/18 07:00 Intake Total 336 ml Balance 336 ml Intake Oral 336 ml # Bowel Movements 3 General Appearance: Alert, Awake, No Acute Distress Respiratory: Clear to Auscultation Result Diagram: 02/17/18 0543 02/16/18 0512 Assessment and Plan Problems: (1) Community acquired bacterial pneumonia Status: Acute Assessment & Plan: This may have been a possible aspiration episode as well. He did present with cough and right sided chest pain. His CT scan has revealed an infiltrate and loculated effusion on the right. His WBC and CRP were both elevated. He was on amoxicillin and doxycycline prior to admission. A culture from his pleural fluid is showing gram positive cocci. A chest tube was placed initially, but he continued to have loculations and had to have a VATS on 02/14. One of two chest tubes was removed today. We placed him on empiric treatment with IV Primaxin and then was switched to Augmentin on 02/16. His CRP was increased, but is decreasing. He spiked a fever overnight, so restarted IV Primaxin last night. (2) Pleural effusion on right Assessment & Plan: Loculated effusion secondary to pneumonia (possibly aspiration). See above. (3) Essential hypertension Assessment & Plan: He has been on chronic treatment with metoprolol, which was on hold. Will restart with parameters (4) Ileus Status: Acute Assessment & Plan: Resolved. He has advanced to clear liquids. (5) Anemia, unspecified Status: Acute Assessment & Plan: He did require transfusions with two units of red cells on . His Hgb is stable today. Exam Sepsis Risk: No Definite Risk BELINDA QUICK MD Feb 17, 2018 13:15
[2018-02-17] MEDS: PROMETHAZINE 25 MG/ML 1 ML AMP IVP PRN (19:39)
[2018-02-17 19:52] VITALS: BP 150/93
[2018-02-17] MEDS: ACETAMINOPHEN 500 MG TAB PO PRN (20:07)
--- NOTE | 2018-02-17 20:13 | Miscellaneous Provider Note ---
Miscellaneous Provider Note Note The patient has had fevers today and now it is up to 103 degrees. He feels hot. Will check UA and blood cultures. Will start fluconazole because he has been growing yeast from sputum cultures. BELINDA QUICK MD Feb 17, 2018 20:13
[2018-02-17] MEDS: FLUCONAZOLE 200 MG/100ML PRMIX 100 ML IVPB SCH (21:10)
[2018-02-17] MEDS: METOPROLOL TART 50 MG TAB PO SCH (21:11)
[2018-02-17 23:14] VITALS: BP 153/98
[2018-02-17] MEDS ORDERED: NS(*) 0.9% 500 ML BAG 500 ML ONE (23:27)
[2018-02-18] MEDS: PROMETHAZINE 25 MG/ML 1 ML AMP IVP PRN (02:03)
[2018-02-18 03:48] VITALS: BP 144/98
[2018-02-18] MEDS: IMIPENEM/CILASTA(*) 500MG VIAL 500 MG in NS(*) 0.9% 100 ML BAG 100 ML IVPB SCH ×4 (05:31→23:50)
[2018-02-18 05:54] LABS: PLATELET COUNT, AUTOMATED 171 K/uL (150-450)
--- NOTE | 2018-02-18 07:02 | RADIOLOGY IMAGING REPORT ---
FACILITY: [facility] - [place] PATIENT NAME: Wilian Matthew : 1955 MR: [id number] V: [id number] EXAM DATE: ORDERING PHYSICIAN: RIMA KINGSLEY TECHNOLOGIST: Location: [facility] [place] Patient: Wilian Matthew : 1955 Visit/Account:[id number] Date of Sevice: 02/18/2018 CHEST SINGLE AP COMPARISONS: Single view chest dated February 17, 2018 ADDITIONAL PERTINENT HISTORY: Right-sided empyema. FINDINGS: Cardiomediastinal silhouette: Negative. Pulmonary vasculature: Negative. Lung felder: Elevation of the right hemidiaphragm with atelectatic change at the right lung base. Th e left hemithorax is clear. Pleural spaces: Right-sided chest tube in place. Otherwise negative Osseous structures: Negative. Surrounding soft tissues: Negative. IMPRESSION: 1. Right-sided chest tube with its tip near the right lung apex. 2. No evidence of right-sided pneumothorax. 3. Elevation of the right hemidiaphragm with right basilar atelectatic change. Report Dictated By: Gavino West MD at 02/18/2018 6:56 AM Report E-Signed By: Gavino West MD at 02/18/2018 6:58 AM WSN:[id number]
--- NOTE | 2018-02-18 07:21 | General Surgery Progress Note ---
Subjective Progress Notes Subjective No complaints. Still having fevers. Physical Exam Vital Signs Date Time Temp Pulse Resp B/P (MAP) Pulse Ox O2 Delivery O2 Flow Rate FiO2 02/18/18 03:48 99.6 90 16 144/98 (113) 93 High-Flow Nasal Cannula 2.5 02/15/18 11:00 40.0 General Appearance: Alert, Awake, No Acute Distress, Afebrile Chest: Other (Remaining chest tube without air leak. It's tidaling. Very little output. Incisions all look good.) Extremities: Warm, Perfused Result Diagram: 02/18/18 0541 02/18/18 0541 Assessment and Plan Problems: (1) Pleural effusion *Optional Permanent Comment*: Last Edited By: Garrett Cabrera MD on Feb 13, 2018 08:42 Status: Acute Assessment & Plan: 02/13 cxray today shows improved air spaces and reduction of effusions 825cc serosanguinous fluid out from CT yesterday continue on suction, small apical pneumothorax continue TPA protocol repeat chest CT tomorrow continue abx for pneumonia 02/14 pleural collection appears to be thick and increased in size compared to prior Chest tube may have been pulled back Plan for VATS today, consent obtained. type and screen sent. 02/15 POD1 right VATs for empyema chest xray stable from postop cultures pending on Bronch, continue empiric abx plan to extubate today continue chest tubes to 20mm suction hbg down today 7.7, transfusion in progress 02/16/18: POD#2 s/p right VATS. DOign well. CXR looks good on water seal. Will continue water seal and check CXR in am. If looks good will remove 1 of the chest tubes tomorrow morning and the second the day after if the CXRs continue to look good. 02/17/18: POD#3. Doing well. CXR stable. Inferior chest tube removed. Will get post-pull CXR later today and then in am and if looks good, will remove remaining chest tube tomorrow morning. 02/18/18: POD#4. Remaining chest tube removed this morning. CXR looks reasonably well other than poor volume and elevated right hemidiaphragm but it doesn't look like there's any retained fluid/loculations. No PTX. Will get CXR in 4 hours and in the AM. (2) Ileus Status: Acute Assessment & Plan: 02/[address] NGT if large gastric bubble. make NPO, continue IVFs 02/14 ileus has resolved and NGT output decreased CT shows decompressed bowels passing flatus will remove NGT after VATS 02/15 NGT out will start clear liquid diet when patient extubates Condition Stable. Time Spent: < 30 min Exam Sepsis Risk: No Definite Risk RIMA KINGSLEY MD Feb 18, 2018 07:21
[2018-02-18 07:54] VITALS: BP 141/98
[2018-02-18] MEDS: METOPROLOL TART 50 MG TAB PO SCH ×2 (08:05→20:10)
[2018-02-18] MEDS: ACETAMINOPHEN 500 MG TAB PO PRN ×2 (08:06→16:03)
[2018-02-18] MEDS: POLYETHYLENE GLYCOL 17 GM PKT PO SCH (09:00)
[2018-02-18] MEDS: DOCUSATE SODIUM 100 MG CAP PO SCH ×2 (09:00→20:10)
[2018-02-18 11:27] VITALS: BP 120/93
--- NOTE | 2018-02-18 12:02 | Antimicrobial Stewardship ---
Antimicrobial Time Out Antimicrobial Stewardship MD Service: Hospitalist Indications: CAP Antimicrobial Used Primaxin -->Augmentin (fever) -->restarted primaxin, added fluconazole Start Date: Feb 18, 2018 Culture Results: Yes (Sputum and bronchial washings (+) S. intermedius, +yeast bronchial washings, blood cx (-)) Eligible for PO Conversion Eligable for PO Conversion: No (May de-escalate when afebrile for 24h) Reviewed with Provider Reviewed w/ Provider on Rounds: Yes Date Reviewed w/ Provider: Feb 18, 2018 Comments Comments 62 yo M with history of 6 weeks of cough, here on vacation, s/p two courses of antibiotics (amoxicillin, doxycycline + prednisone), with a history of tendon rupture on a quinolone. afebrile on admission with elevated wbcs 17.1, s/p VATs, chest tubes to water seal, resolved ileus Now afebrile, wbc wnl Cultures: Blood cx NGTD (day 5), Pleural fluid and bronchial washings - Streptococcus intermedius (+), yeast (likely normal carlos--consider broadening coverage with fluconazole) Recommend: Pt spiked fevers both yesterday and today, restarted primaxin, added Fluconazole , both IV. When afebrile for 24h, re-consider de-escalation of regimen. Kristie Dinero, PharmD, BCOP KRISTIE DINERO Feb 18, 2018 12:02
--- NOTE | 2018-02-18 12:53 | RADIOLOGY IMAGING REPORT ---
FACILITY: [facility] - [place] PATIENT NAME: Wilian Matthew : 1955 MR: [id number] V: [id number] EXAM DATE: ORDERING PHYSICIAN: RIMA KINGSLEY TECHNOLOGIST: Location: [facility] Patient: Wilian Matthew : 1955 Visit/Account:[id number] Date of Sevice: 02/18/2018 Chest single view: HISTORY: Chest tube removed. COMPARISON: 02/18/2018 0545 hours FINDINGS: Portable chest 1050 hours: Right chest tube has been removed. There is no pneumothorax. T here is residual trace pleural fluid and/or thickening and associated volume loss. There is likely r ight basilar atelectasis. Right hilum remains full similar to previous. Left lung is clear. Calcified pleural plaque is noted. Heart and mediastinal contours are grossly unchanged. IMPRESSION: 1. Interval removal of right chest tube. There is no pneumothorax or other apparent complication. 2. Persistent pleural parenchymal abnormalities in the right lung without significant change. Report Dictated By: Landy Hess MD at 02/18/2018 12:46 PM Report E-Signed By: Landy Hess MD at 02/18/2018 12:49 PM WSN:[id number]
[2018-02-18 15:50] VITALS: BP 133/88
--- NOTE | 2018-02-18 16:11 | Hospitalist Progress Note ---
Subjective Progress Notes Subjective Pt admitted for aspiration pneumonia with parapneumonic effusion. Overnight was febrile to 102. Started on fluconazole. Patient Complains of: Cardiovascular: No: Chest Pain Respiratory: Cough Gastrointestinal: Bowel Movement, No Nausea, No Vomiting Physical Exam Vital Signs Date Time Temp Pulse Resp B/P (MAP) Pulse Ox O2 Delivery O2 Flow Rate FiO2 02/18/18 11:27 98.3 85 32 120/93 (102) 95 High-Flow Nasal Cannula 2.0 02/15/18 11:00 40.0 Intake and Output 02/19/18 07:00 Intake Total 480 ml Balance 480 ml Intake Oral 480 ml General Appearance: Alert, Awake, No Acute Distress Neuro: No Gross deficits Eyes: PERRLA ENT: Normal Neck: No Masses Cardiovascular: Normal Rhythm & Peripheral Pulses Respiratory: No Respiratory Distress (+ cough) Chest: No Masses GI: Soft and Non-Tender : Normal Lymph: No Adenopathy Musculoskeletal: No Weakness/Pain Extremities: Soft and Non Tender, Warm, Pulses Integumentary: Skin Intact without Lesion / Mass Psych: Alert & Oriented X3, Appropriate Mood & Affect Result Diagram: 02/18/18 0541 02/18/18 0541 Assessment and Plan Problems: (1) Community acquired bacterial pneumonia Status: Acute Assessment & Plan: This may have been a possible aspiration episode as well. He did present with cough and right sided chest pain. His CT scan has revealed an infiltrate and loculated effusion on the right. His WBC and CRP were both elevated. He was on amoxicillin and doxycycline prior to admission. A culture from his pleural fluid is showing step . A chest tube was placed initially, but he continued to have loculations and had to have a VATS on 02/14. One of two chest tubes was removed today. We placed him on empiric treatment with IV Primaxin and then was switched to Augmentin on 02/16. His CRP was increased, but is decreasing. He spiked a fever overnight, restarted IV Primaxin. (2) Pleural effusion on right Assessment & Plan: Loculated effusion secondary to pneumonia (possibly aspiration). Resolved, chest tubes removed. (3) Essential hypertension Assessment & Plan: He has been on chronic treatment with metoprolol, which was on hold. Will restart with parameters (4) Ileus Status: Acute Assessment & Plan: Resolved. (5) Anemia, unspecified Status: Acute Assessment & Plan: He did require transfusions with two units of red cells on . His Hgb is stable today. Exam Sepsis Risk: No Definite Risk KELLY STILLKISHORE DO Feb 18, 2018 16:10
[2018-02-18 20:11] VITALS: BP 131/89
[2018-02-18] MEDS: FLUCONAZOLE 200 MG/100ML PRMIX 100 ML IVPB SCH (20:11)
[2018-02-18] MEDS: KETOROLAC 30 MG/ML VIAL IVP PRN (20:36)
[2018-02-18 23:48] VITALS: BP 132/91
[2018-02-19 03:48] VITALS: BP 130/84
[2018-02-19] MEDS: IMIPENEM/CILASTA(*) 500MG VIAL 500 MG in NS(*) 0.9% 100 ML BAG 100 ML IVPB SCH ×2 (05:42→12:28)
[2018-02-19 06:04] LABS: PLATELET COUNT, AUTOMATED 183 K/uL (150-450)
--- NOTE | 2018-02-19 06:38 | RADIOLOGY IMAGING REPORT ---
FACILITY: [facility] PATIENT NAME: Wilian Matthew : 1955 MR: [id number] V: [id number] EXAM DATE: ORDERING PHYSICIAN: RIMA KINGSLEY TECHNOLOGIST: Location: [facility] [place] Patient: Wilian Matthew : 1955 Visit/Account:[id number] Date of Sevice: 02/19/2018 CHEST SINGLE AP COMPARISONS: February 18, 2018 ADDITIONAL PERTINENT HISTORY: Right-sided empyema status post VATS FINDINGS: Cardiomediastinal silhouette: Negative. Pulmonary vasculature: Negative. Lung felder: Elevation of the right hemidiaphragm with mild right basilar strandy opacity likely rep resenting atelectatic change. Pleural spaces: Small right-sided pleural effusion. This is stable from previous exam. Osseous structures: Negative. Surrounding soft tissues: Minimal subcutaneous emphysema along the inferior right chest wall. IMPRESSION: No significant change when compared to previous exam. Report Dictated By: Gavino West MD at 02/19/2018 6:33 AM Report E-Signed By: Gavino West MD at 02/19/2018 6:34 AM WSN:[id number]
--- NOTE | 2018-02-19 07:39 | General Surgery Progress Note ---
Subjective Progress Notes Subjective Feeling better this morning. Improving cough. No SOB, neck pain and wrist pain that he c/o last night is better this morning. Physical Exam Vital Signs Date Time Temp Pulse Resp B/P (MAP) Pulse Ox O2 Delivery O2 Flow Rate FiO2 02/19/18 03:48 99.2 86 21 130/84 (99) 97 High-Flow Nasal Cannula 2.0 02/15/18 11:00 40.0 General Appearance: Alert, Awake, No Acute Distress, Afebrile Chest: Other (Dressing on right chest is clean and dry) GI: Soft and Non-Tender Extremities: Warm, Perfused Result Diagram: 02/19/18 0536 02/19/18535 Assessment and Plan Problems: (1) Pleural effusion *Optional Permanent Comment*: Last Edited By: Garrett Cabrera MD on Feb 13, 2018 08:42 Status: Acute Assessment & Plan: 02/13 cxray today shows improved air spaces and reduction of effusions 825cc serosanguinous fluid out from CT yesterday continue on suction, small apical pneumothorax continue TPA protocol repeat chest CT tomorrow continue abx for pneumonia 02/14 pleural collection appears to be thick and increased in size compared to prior Chest tube may have been pulled back Plan for VATS today, consent obtained. type and screen sent. 02/15 POD1 right VATs for empyema chest xray stable from postop cultures pending on Bronch, continue empiric abx plan to extubate today continue chest tubes to 20mm suction hbg down today 7.7, transfusion in progress 02/16/18: POD#2 s/p right VATS. DOign well. CXR looks good on water seal. Will continue water seal and check CXR in am. If looks good will remove 1 of the chest tubes tomorrow morning and the second the day after if the CXRs continue to look good. 02/17/18: POD#3. Doing well. CXR stable. Inferior chest tube removed. Will get post-pull CXR later today and then in am and if looks good, will remove remaining chest tube tomorrow morning. 02/18/18: POD#4. Remaining chest tube removed this morning. CXR looks reasonably well other than poor volume and elevated right hemidiaphragm but it doesn't look like there's any retained fluid/loculations. No PTX. Will get CXR in 4 hours and in the AM. 02/19/18: POD#5. Doing well. CXR looks good except hypoventilation and elevated right hemidiaphragm but stable. NO fluid or PTX. I recommend continuing IV abx until afebrile x24 hours then convert to PO and then can d/c to home. (2) Ileus Status: Resolved Assessment & Plan: 02/[address] NGT if large gastric bubble. make NPO, continue IVFs 02/14 ileus has resolved and NGT output decreased CT shows decompressed bowels passing flatus will remove NGT after VATS 02/15 NGT out will start clear liquid diet when patient extubates 02/19/18: Doing well. Good bowel function. Condition Stable. Time Spent: < 30 min Exam Sepsis Risk: No Definite Risk RIMA KINGSLEY MD Feb 19, 2018 07:39
[2018-02-19 08:00] VITALS: BP 133/84
[2018-02-19] MEDS ORDERED: NS(*) 0.9% 250 ML BAG 250 ML ONE (08:34)
[2018-02-19] MEDS: METOPROLOL TART 50 MG TAB PO SCH ×2 (08:36→20:29)
[2018-02-19] MEDS: GUAIFENESIN/DEXTROMETHORPHAN 5 ML PO PRN (08:37)
[2018-02-19] MEDS: POLYETHYLENE GLYCOL 17 GM PKT PO SCH (09:00)
[2018-02-19] MEDS ORDERED: NS(*) 0.9% 250 ML BAG 250 ML IV PRN ×2 (09:00→12:20)
[2018-02-19] MEDS: DOCUSATE SODIUM 100 MG CAP PO SCH ×2 (09:00→20:31)
[2018-02-19] MEDS: ACETAMINOPHEN 500 MG TAB PO PRN ×2 (10:16→22:34)
[2018-02-19 11:55] VITALS: BP 118/78
[2018-02-19] MEDS ORDERED: LIDOCAINE MPF 1% 5 ML VIAL ONE (13:59)
--- NOTE | 2018-02-19 14:29 | Hospitalist Progress Note ---
Subjective Progress Notes Subjective The patient is reporting overall improvement. He has been afebrile for over 24 hours. Physical Exam Vital Signs Date Time Temp Pulse Resp B/P (MAP) Pulse Ox O2 Delivery O2 Flow Rate FiO2 02/19/18 11:55 99.3 71 24 118/78 (91) 89 Room Air 02/19/18 08:00 1.0 02/15/18 11:00 40.0 Intake and Output 02/20/18 06:59 Intake Total 750 ml Balance 750 ml Intake Oral 640 ml IV Total 110 ml # Voids 1 # Bowel Movements 1 General Appearance: Alert, Awake, No Acute Distress Respiratory: Clear to Auscultation Result Diagram: 02/19/18 0536 02/19/18 0536 Assessment and Plan Problems: (1) Aspiration pneumonia Status: Acute Assessment & Plan: He did presented with cough and right sided chest pain. He had aspirated a corn nut about 3 weeks prior to admission. He was on amoxicillin and doxycycline prior to admission. His CT scan has revealed an infiltrate and loculated effusion on the right. His WBC and CRP were both elevated. A culture from his pleural fluid and bronchoscopy from the left lung are growing strep intermedius . A chest tube was placed initially, but he continued to have loculations and had to have a VATS on 02/14. One chest tube was removed on 02/17 and the second on 02/18. We placed him on empiric treatment with IV Primaxin and then was switched to Augmentin on 02/16. He spiked a temperature the same day so was restarted on Primaxin. Now he has been afebrile for [address] Quick spoke with ID and they recommend 4 weeks of IV abx for empyema especially with strep intermedius growth. He has been switched to IV Ceftriaxone. The patient is getting a PICC line and we are working with to coordinate getting him back to [place], [place]. (2) Empyema Status: Acute Assessment & Plan: Secondary to aspiration pneumonia. See above. (3) Essential hypertension Assessment & Plan: Continue chronic metoprolol with parameters (4) Ileus Status: Resolved Assessment & Plan: Resolved. (5) Anemia, unspecified Status: Acute Assessment & Plan: He did require transfusions with two units of red cells on . His Hgb is stable today. Exam Sepsis Risk: No Definite Risk BELINDA QUICK MD Feb 19, 2018 14:28
[2018-02-19 15:04] VITALS: BP 127/90
--- NOTE | 2018-02-19 16:27 | RADIOLOGY IMAGING REPORT ---
FACILITY: [facility] PATIENT NAME: Wilian Matthew : 1955 MR: [id number] V: [id number] EXAM DATE: ORDERING PHYSICIAN: BELINDA QUICK TECHNOLOGIST: Location: [facility] - [place] Patient: Wilian Matthew : 1955 Visit/Account:[id number] Date of Sevice: 02/19/2018 ADDENDUM #1 Ultrasound was used to select the left basilic vein. Basilic vein patency was demonstrated by ultras ound. Ultrasound images were saved into the PACS archive. 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 Ult rasound was used to visualize the veins in the left arm. Basilic vein appears appropriate for access . The left arm was chosen since the patient is right-handed. The arm was prepped with ChloraPrep an d sterile towels were placed for draping. A tourniquet was applied. Ultrasound was used to visualiz e the vein and lidocaine was administered for local anesthesia down towards the vein. Using ultrasou nd visualization for guidance the vein was punctured with a micropuncture needle and a sheath was ivelisse araseli using Seldinger technique. Ultrasound imaging was archived into PACs system. Through the sheath a dual lumen PICC catheter was advanced over the wire into the lower SVC. The catheter was measured and then removed and cut 5 cm. It was readvanced until the tip was in the lower SVC near the atrium . Both lumens aspirated and flushed without difficulty. The catheter was fixed in place. No immedi ate competitions were noted. IMPRESSION: Technically successful left arm PICC catheter placement using ultrasound and fluoroscopy for guidance . Report Dictated By: Wang Chapman MD at 02/19/2018 4:18 PM Report E-Signed By: Wang Chapman MD at 02/19/2018 4:22 PM WSN:[id number]
--- NOTE | 2018-02-19 16:27 | RADIOLOGY IMAGING REPORT ---
FACILITY: [facility] PATIENT NAME: Wilian Matthew : 1955 MR: [id number] V: [id number] EXAM DATE: ORDERING PHYSICIAN: BELINDA QUICK TECHNOLOGIST: Location: [facility] Patient: Wilian Matthew : 1955 Visit/Account:[id number] Date of Sevice: 02/19/2018 ADDENDUM #1 Ultrasound was used to select the left basilic vein. Basilic vein patency was demonstrated by ultras ound. Ultrasound images were saved into the PACS archive. 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 Ult rasound was used to visualize the veins in the left arm. Basilic vein appears appropriate for access . The left arm was chosen since the patient is right-handed. The arm was prepped with ChloraPrep an d sterile towels were placed for draping. A tourniquet was applied. Ultrasound was used to visualiz e the vein and lidocaine was administered for local anesthesia down towards the vein. Using ultrasou nd visualization for guidance the vein was punctured with a micropuncture needle and a sheath was ivelisse araseli using Seldinger technique. Ultrasound imaging was archived into PACs system. Through the sheath a dual lumen PICC catheter was advanced over the wire into the lower SVC. The catheter was measured and then removed and cut 5 cm. It was readvanced until the tip was in the lower SVC near the atrium . Both lumens aspirated and flushed without difficulty. The catheter was fixed in place. No immedi ate competitions were noted. IMPRESSION: Technically successful left arm PICC catheter placement using ultrasound and fluoroscopy for guidance . Report Dictated By: Wang Chapman MD at 02/19/2018 4:18 PM Report E-Signed By: Wang Chapman MD at 02/19/2018 4:22 PM WSN:[email or web address]
[2018-02-19] MEDS ORDERED: cefTRIAXone 2 GM VIAL IVP SCH (18:00)
[2018-02-19] MEDS: APAP/HYDROCODONE 325/5 TAB PO PRN (18:45)
[2018-02-19 19:45] VITALS: BP 141/88
[2018-02-19 22:31] VITALS: BP 127/86
[2018-02-19] MEDS: KETOROLAC 30 MG/ML VIAL IVP PRN (23:42)
[2018-02-20 02:34] VITALS: BP 137/97
[2018-02-20 05:42] LABS: PLATELET COUNT, AUTOMATED 241 K/uL (150-450)
--- NOTE | 2018-02-20 07:23 | General Surgery Progress Note ---
Subjective Progress Notes Subjective No complaints. He feels like he's improving. Physical Exam Vital Signs Date Time Temp Pulse Resp B/P (MAP) Pulse Ox O2 Delivery O2 Flow Rate FiO2 02/20/18 02:34 98.6 73 20 137/97 (110) 95 Nasal Cannula 2.0 General Appearance: Alert, Awake, No Acute Distress, Afebrile Chest: Other (Incisions on right chest are without erythema. Small amount of serous drainage from anterior chest tube incision. Rest are dry. No erythema around any of them.) Extremities: Warm, Perfused Result Diagram: 02/20/1852502/20/18525 Assessment and Plan Problems: (1) Pleural effusion *Optional Permanent Comment*: Last Edited By: Garrett Cabrera MD on Feb 13, 2018 08:42 Status: Acute Assessment & Plan: 02/13 cxray today shows improved air spaces and reduction of effusions 825cc serosanguinous fluid out from CT yesterday continue on suction, small apical pneumothorax continue TPA protocol repeat chest CT tomorrow continue abx for pneumonia 02/14 pleural collection appears to be thick and increased in size compared to prior Chest tube may have been pulled back Plan for VATS today, consent obtained. type and screen sent. 02/15 POD1 right VATs for empyema chest xray stable from postop cultures pending on Bronch, continue empiric abx plan to extubate today continue chest tubes to 20mm suction hbg down today 7.7, transfusion in progress 02/16/18: POD#2 s/p right VATS. DOign well. CXR looks good on water seal. Will continue water seal and check CXR in am. If looks good will remove 1 of the chest tubes tomorrow morning and the second the day after if the CXRs continue to look good. 02/17/18: POD#3. Doing well. CXR stable. Inferior chest tube removed. Will get post-pull CXR later today and then in am and if looks good, will remove remaining chest tube tomorrow morning. 02/18/18: POD#4. Remaining chest tube removed this morning. CXR looks reasonably well other than poor volume and elevated right hemidiaphragm but it doesn't look like there's any retained fluid/loculations. No PTX. Will get CXR in 4 hours and in the AM. 02/19/18: POD#5. Doing well. CXR looks good except hypoventilation and elevated right hemidiaphragm but stable. NO fluid or PTX. I recommend continuing IV abx until afebrile x24 hours then convert to PO and then can d/c to home. 02/20/18: POD#6. Doing well. Hospitalist coordinating d/c and arranging for longterm IV abx via PICC after d/c. O/W, about ready for discharge when these arrangements are made. Anna will need to be removed middle of next week. (2) Ileus Status: Resolved Assessment & Plan: 02/[address] NGT if large gastric bubble. make NPO, continue IVFs 02/14 ileus has resolved and NGT output decreased CT shows decompressed bowels passing flatus will remove NGT after VATS 02/15 NGT out will start clear liquid diet when patient extubates 02/19/18: Doing well. Good bowel function. Condition Stable. Time Spent: < 30 min Exam Sepsis Risk: No Definite Risk RIMA KINGSLEY MD Feb 20, 2018 07:23
[2018-02-20 08:03] VITALS: BP 150/97
[2018-02-20] MEDS: APAP/HYDROCODONE 325/5 TAB PO PRN (08:54)
[2018-02-20] MEDS: METOPROLOL TART 50 MG TAB PO SCH (08:55)
[2018-02-20] MEDS: DOCUSATE SODIUM 100 MG CAP PO SCH (08:56)
[2018-02-20] MEDS: POLYETHYLENE GLYCOL 17 GM PKT PO SCH (08:56)
[2018-02-20] MEDS ORDERED: POTASSIUM CHL 20 MEQ TABCR PO SCH (09:55)
[2018-02-20] MEDS ORDERED: ONDA-2 PO (10:33)
[2018-02-20] MEDS ORDERED: CEFT2VIA53 IVP (10:33)
--- NOTE | 2018-02-20 11:21 | Hospitalist Depart ---
Discharge Summary Reason for Hosp/Final Diag: (1) Aspiration pneumonia Status: Acute Hospital Course & Plan: He did present with cough and right sided chest pain. He had aspirated a corn nut about 3 weeks prior to admission. He was on amoxicillin and doxycycline prior to admission. His CT scan has revealed an infiltrate and loculated effusion on the right. His WBC and CRP were both elevated. A culture from his pleural fluid and bronchoscopy from the left lung are growing strep intermedius . A chest tube was placed initially, but he continued to have loculations and had to have a VATS on 02/14. One chest tube was removed on 02/17 and the second on 02/18. We placed him on empiric treatment with IV Primaxin and then was switched to Augmentin on 02/16. He spiked a temperature the same day so was restarted on Primaxin. Now he has been afebrile for [address] Gomez spoke with ID and they recommend 4 weeks of IV abx for empyema especially with strep intermedius growth. He has been switched to IV Ceftriaxone. The patient has a PICC line and we are working with to coordinate getting him back to [place], [place]. (2) Empyema Status: Acute Hospital Course & Plan: Secondary to aspiration pneumonia. See above. (3) Essential hypertension Hospital Course & Plan: Continue chronic metoprolol (4) Ileus Status: Resolved Hospital Course & Plan: Resolved. (5) Anemia, unspecified Status: Acute Hospital Course & Plan: He did require transfusions with two units of red cells on 02/15. Departure Weight (Pounds): 182 Weight (Ounces): 9.0 Result Diagram: 02/20/1852502/20/18525 Condition: Improved Discharge Instructions Home Meds Active Scripts Ondansetron Hcl (ONDANSETRON HCL) 4 Mg Tablet, 4 MG PO Q12H for Nausea, #14 TAB Prov:KISHORE CLEMONS DO 02/20/18 Ceftriaxone Sodium (CEFTRIAXONE) 2 Gm Vial.port, 2 GM IVP Q24H@1800 for 42 Days , VIAL Prov:KISHORE CLEMONS DO 02/20/18 Reported Medications Ranitidine Hcl (ZANTAC) 150 Mg Tablet, 300 MG PO QHS, TAB 02/12/18 Fenofibrate Nanocrystallized (FENOFIBRATE) 145 Mg Tablet, 145 MG PO QDAY 02/12/18 Metoprolol Succinate (METOPROLOL SUCCINATE) 50 Mg Tab.er.24h, 25 MG PO BID 02/12/18 Multivitamin With Minerals (MULTIPLE VITAMIN) 1 Each Tablet, 1 EACH PO, TAB 02/12/18 Ascorbic Acid (VITAMIN C) 500 Mg Tablet, 500 MG PO, TAB 02/12/18 Benzonatate 100 Mg Cap (TESSALON PERLE 100 MG CAP) 100 Mg Capsule, 100 MG PO TID , #15 CAP 02/12/18 Cyclobenzaprine Hcl (CYCLOBENZAPRINE HCL) 10 Mg Tablet, 10 MG PO TID, #9 TAB 02/12/18 Cetirizine Hcl (ZYRTEC) 10 Mg Capsule, 10 MG PO QDAY, CAPSULE 02/12/18 Aspirin (ASPIRIN) 81 Mg Tab.chew, 81 MG PO QDAY, TAB.CHEW 02/12/18 Omeprazole (OMEPRAZOLE) 20 Mg Tablet.dr, 20 MG PO BID, TAB 02/12/18 Montelukast Sodium (SINGULAIR) 10 Mg Tablet, 1 TAB PO QDAY, TAB 02/12/18 Diet: Regular Activity: As Tolerated Venous Thromboembolism Antithrombotics Is Pt On Any Antithrombotics?: No KISHORE CLEMONS DO Feb 20, 2018 11:21
[2018-02-20] MEDS ORDERED: cefTRIAXone 2 GM VIAL IVP SCH (15:03)
[2018-02-20] MEDS: PROMETHAZINE 25 MG/ML 1 ML AMP IVP PRN (15:20)
== END 2018-02-20 15:45 | disposition home or self-care (01) | DRG 163 ==
LOC: ER 07:39 → MED 11:51 → ICU 02-14 13:45 → MED 02-16 16:00
PROVIDERS: ADMIT Family Medicine; ATTEND Family Medicine
PROC: 0W9930Z Drainage of Right Pleural Cavity with Drainage Device, Percutaneous Approach (ICD-10-PCS; 2018-02-12)
PROC: 3E1L38Z Irrigation of Pleural Cavity using Irrigating Substance, Percutaneous Approach (ICD-10-PCS; 2018-02-14)
PROC: 0BC28ZZ Extirpation of Matter from Carina, Via Natural or Artificial Opening Endoscopic (ICD-10-PCS; 2018-02-14)
PROC: 0BH17EZ Insertion of Endotracheal Airway into Trachea, Via Natural or Artificial Opening (ICD-10-PCS; 2018-02-14)
PROC: 5A1935Z Respiratory Ventilation, Less than 24 Consecutive Hours (ICD-10-PCS; 2018-02-14)
PROC: 0B5N4ZZ Destruction of Right Pleura, Percutaneous Endoscopic Approach (ICD-10-PCS; principal; 2018-02-14 10:03)
DX: J69.0 Pneumonitis due to inhalation of food and vomit (principal); J86.9 Pyothorax without fistula; K56.7 Ileus, unspecified; J91.8 Pleural effusion in other conditions classified elsewhere; E87.2 Acidosis; L76.32 Postprocedural hematoma of skin and subcutaneous tissue following other procedure; T17.490A Other foreign object in trachea causing asphyxiation, initial encounter; B37.89 Other sites of candidiasis; I10 Essential (primary) hypertension; D64.9 Anemia, unspecified; B95.4 Other streptococcus as the cause of diseases classified elsewhere; R00.0 Tachycardia, unspecified; Y83.8 Other surgical procedures as the cause of abnormal reaction of the patient, or of later complication, without mention of misadventure at the time of the procedure; Y82.8 Other medical devices associated with adverse incidents; Y92.230 Patient room in hospital as the place of occurrence of the external cause; Z88.8 Allergy status to other drugs, medicaments and biological substances
CPT/HCPCS: 36415; 36416; 36430; 36569; 71045; 71046; 71250; 71275; 74018; 74177; 76937; 81001; 82040; 82247; 82274; 82310; 82374; 82435; 82565; 82803; 82947; 82948; 83605; 84075; 84132; 84155; 84295; 84450; 84460; 84484; 84520; 85014; 85018; 85025; 85379; 86140; 86850; 86900; 86901; 86920; 87040; 87070; 87071; 87077; 87088; 87205; 93005; 94002; 94003; 94640; 97161; 97166; 99152; 99153; A7048; C1751; J0131; J0690; J0696; J0743; J1100; J1170; J1450; J1885; J1940; J2001; J2250; J2405; J2550; J2704; J2997; J3010; J3490; J7030; J7040; J7050; J7613; P9016; Q9967